=== PATIENT | female | born 1945 | race Caucasian/White ===

== ENCOUNTER 2019-07-18 11:08 | Emergency (ER) | payer MEDICARE, OTHER, SELFPAY ==
[2019-07-18 11:08] VITALS: BP 112/57; PULSE 99; RESP 18; TEMP 36.7; O2SAT 97; BMI 28.5
--- NOTE | 2019-07-18 11:35 | EKG12_ITS ---
Test Reason : SYNCOPE Blood Pressure : / mmHG Vent. Rate : 097 BPM Atrial Rate : 097 BPM P-R Int : 214 ms QRS Dur : 080 ms QT Int : 342 ms P-R-T Axes : 046 -29 156 degrees QTc Int : 434 ms Sinus rhythm with 1st degree A-V block ST & T wave abnormality, consider anterior ischemia Abnormal ECG Confirmed by HAKAN FRYE, CARTER ([id number]), art editor МАРИЯ ANTHONY ([id number]) on 07/22/2019 3:42:54 PM Referred By: ML Confirmed By:CARTER MCCLENDON MD
[2019-07-18 11:36] VITALS: BP 106/49; BP 108/56; BP 120/43; PULSE 104; PULSE 114; PULSE 99
--- NOTE | 2019-07-18 11:36 | ED.VIS.GEN ---
History of Present Illness Chief Complaint: Syncope Informant: Patient, Significant Other Narrative: Family presents the emergency department with syncope and near syncope. Patient states that this evening before bed she felt fine. This morning around 630 and walked to the bedside commode feeling fine. She states that while urinating she got very lightheaded and sweaty and fell forward onto the ground. She does not remember doing so. Her eventually was able to wake her up to get her back into the bed. She had vomiting. After about an hour and a half he helped her down the stairs when she laid on the couch. She attempted to get up and ambulate and again got very lightheaded/dizzy and hot and felt like she may pass out. They then decided to come to the emergency department. She is not had any prior syncope other than one time while donating blood. She states that the current time she feels fine she is just very hesitant about standing back up. EMS did note a blood pressure in the 70s when they arrived. That has subsequently normalized. Past Medical History - Allergies and Home Meds Allergies/Adverse Reactions: Allergies codeine Allergy (Verified 07/18/19 11:18) Other erythromycin lactobionate [From Erythrocin] Allergy (Verified 07/18/19 11:18) Other Primary Care Physician: Rick Dupont MD [Primary Care Provider] - 3-5 Days Smoking Status: Never smoker Review of Systems General: Denies: Chills, Fever, Sweats Eyes: Denies: Visual changes - bilaterally, Diplopia ENT: Denies: Rhinorrhea, Sore throat Cardiovascular: Reports: - - Syncope. Denies: Chest pain, Palpitations Respiratory: Denies: Dyspnea, Cough, Dyspnea on exertion Gastrointestinal: Reports: Nausea, Vomiting. Denies: Abdominal pain, Diarrhea, Melena, Hematochezia Genitourinary: Denies: Dysuria, Hematuria, Frequency Musculoskeletal: Denies: Back pain, Extremity Pain Skin: Denies: Rash, Wounds Neurological: Denies: Headache, Weakness, Numbness Physical Exam Vital Signs/Narrative: Vital Signs Temp Pulse Resp BP Pulse Ox 07/18/19 11:08 98.1 F 99 18 112/57 L 97 Inital Vital Signs reviewed: Yes General: Well nourished, Well developed, No Acute Distress Head: Normocephalic, Atraumatic Eyes: Perrl, EOMI ENT: Moist mucous membranes, No rhinorrhea Neck: Supple, Nontender Cardiovascular: Regular rate, Regular rhythm, No murmurs Respiratory: No distress, CTA bilaterally, Chest nontender Abdomen: Soft, Nontender, Nondistended, Normal bowel sounds Back: Nontender, Normal Inspection Extremities: Nontender, No edema Skin: Normal color, No rash Neurological: Alert, Oriented x3, Cranial nerves II-XII grossly intact, Normal Strength, Normal Sensation Psychological: Normal affect, Normal Mood Diagnostic/Tx/Re-eval - Medical Decision Making Basic labs including troponin were negative. Patient's EKG shows no ACS features. She is observed on the monitor and has had no dysrhythmias. Orthostatics were obtained and the patient feels fine standing. She has no chest pain or shortness of breath no risk factors for me to think that pulmonary embolism is a cause for her syncope. Given her descriptions of antipain on the commode getting hot sweaty and passing out that this is most likely vagal. Patient's been able to eat and drink and ambulate. She has not yet had her atenolol and she remained slightly tachycardic. Recommend that she take her atenolol when she gets home but hold her diuretic today. She will be discharged home with instructions to follow-up prescription for Zofran. ED Disposition - Plan for ED Patient: Disposition: Home or Assisted Living Diagnosis: Syncope and collapse Instructions: SYNCOPE, Vasovagal Prescriptions: Ondansetron [Zofran Odt] 4 mg PO Q6H PRN PRN #20 tab PRN Reason: Nausea Prescription Printed Referrals: Rick Dupont MD [Primary Care Provider] - 3-5 Days Additional Instructions: Please take your atenolol when you get home. I would recommend not taking your water pill (triamterene/hydrochlorothiazide) until you are eating and drinking normally.
[2019-07-18] MEDS: Ondansetron 4 MG/2 ML Vial IV (11:44)
[2019-07-18] MEDS: 0.9% Normal Saline 1,000 ML 1000 ML IV (11:44)
--- NOTE | 2019-07-18 11:52 | RAD_ITS ---
STUDY: X-RAY CHEST REASON FOR EXAM: Female, 73 years old. SYNCOPE TECHNIQUE: AP and lateral views of the chest. COMPARISON: None. FINDINGS: EKG electrode are seen. The lungs are clear and expanded. There is no demonstrated pleural abnormality. Normal size heart. Normal mediastinum and kaitlynn. Normal visualized pulmonary arteries. There is atherosclerotic tortuosity of the aortic arch and descending thoracic aorta. Normal visualized thoracic spine. Normal visualized ribs, clavicles, and shoulders. There is no demonstrated abnormality of the visualized soft tissue structures of the upper abdomen. RAD/Chest PA and Lateral IMPRESSION: No acute abnormality is seen. Electronically Signed: Kai Tarango, at 12:15 EST , Service support ,
[2019-07-18 11:56] LABS: Absolute Neutrophil Count 10.3 X10^3/uL (2.0-7.7); Basophil# 0.02 X10^3/uL; Basophil% 0.2 % (0-1); Eosinophil# 0.01 X10^3/uL; Eosinophils% 0.1 % (0-5); Hematocrit 42.5 % (37-47); Hemoglobin 13.9 g/dL (12.0-15.0); Lymphocyte % 4.4 % (19-41); Mean Corp Hgb Conc 32.7 g/dL (32-36); Mean Corpuscular Hgb 30.1 pg (27.0-32.0); Mean Platelet Vol. 10.3 fl (6.2-12.0); Monocyte# 0.38 X10^3/uL; Monocyte% 3.4 % (0-10); NRBC Flagged by Analyzer 0 % (0-5); Neutrophil # 10.28 X10^3/uL (2.7-7.7); Neutrophil % 91.4 % (47-70); POSITIVE DIFFERENTIAL YES; Platelet Count 243 K/mm3 (150-450); RBC Distribution Width CV 13.2 % (11.6-14.6); RBC Distribution Width SD 44.4 fl (35.1-43.9); Red Blood Count 4.62 M/mm3 (4.2-5.4); White Blood Count 11.3 K/mm3 (4.4-11.0)
[2019-07-18 11:57] LABS: Differential Indicated SCAN CRITERIA MET
[2019-07-18 12:08] VITALS: PULSE 16; O2SAT 96
[2019-07-18 12:18] LABS: ALB/GLOB Ratio 0.9 RATIO (0.9-2.4); AST(SGOT) 23 U/L (15-37); Alanine Aminotransfer ALT/SGPT 23 U/L (13-56); Albumin, Serum 3.4 g/dL (3.2-5.0); Alkaline Phosphatase 70 U/L (45-117); Anion Gap 5 (5-15); BUN 24 mg/dL (7-18); BUN/Creat Ratio 22.6 RATIO (10-20); Calcium,Total 8.7 mg/dL (8.5-10.1); Chloride 107 mmol/L (98-107); Creatinine, Serum 1.06 mg/dL (0.55-1.02); EST Glomerular Filtration Rate 54 mL/min (>60); Est Glom Filt Rate - Afr Amer 65 mL/min (>60); Estimated Creatinine Clearance 43.17 ml/min; Globulin 3.7 g/dL (2.2-4.2); Glucose 121 mg/dL (74-106); Protein, Total 7.1 g/dL (6.4-8.2); Sodium Level 141 mmol/L (136-145)
[2019-07-18 12:20] LABS: Differential Comment SCANNED
[2019-07-18 12:34] LABS: Red Blood Cells-Urine 0 SEEN /hpf (0-5)
[2019-07-18 12:45] LABS: Color, Urine Yellow (Yellow); Glucose, Dipstick Normal (Normal); Ketone-Dipstick Negative (Negative); Leukocyte Esterase-Dipstick 100 /ul (Negative); Nitrite-Dipstick Negative (Negative); Occult Blood-Urine 10 /ul (Negative); Protein-Dipstick 15 mg/dl (Negative); Urine Bilirubin Dipstick Negative (Negative); Urine Clarity Sl. Cloudy (Clear); Urine Urobilinogen Normal (Normal)
[2019-07-18 12:51] LABS: Amorphous Sediment 1+; Bacteria RARE /hpf (None Seen); Mucous, Urine RARE /hpf (<or=2+); Squamous Epithelial Cells - UA 0-5 SEEN /hpf (5-10); White Blood Cells 0-5 SEEN /hpf (0-5)
[2019-07-18 13:56] VITALS: BP 124/55; PULSE 100; RESP 16; TEMP 36.9; O2SAT 100
[2019-07-18 15:25] VITALS: BP 139/59; PULSE 105; RESP 16; O2SAT 98
== END 2019-07-18 15:26 | disposition home or self-care (01) ==
PROVIDERS: Emergency Provider Emergency Medicine; PCP Family Medicine
DX: R55 Syncope and collapse (principal); R11.10 Vomiting, unspecified; R42 Dizziness and giddiness; R00.0 Tachycardia, unspecified; Z79.82 Long term (current) use of aspirin; Z79.899 Other long term (current) drug therapy
CPT/HCPCS: 71046; 80053; 81001; 84484; 85025; 93005; 96361; 96374; 99285; A4216; J2405

== ENCOUNTER 2020-07-07 18:06 | Inpatient (IN) | payer MEDICARE, OTHER, SELFPAY ==
[2020-07-07 18:10] VITALS: BP 160/72; PULSE 67; RESP 20; TEMP 36.9; O2SAT 96; BMI 27.3
--- NOTE | 2020-07-07 18:22 | EKG12_ITS ---
Test Reason : DYSRHYTHMIA Blood Pressure : / mmHG Vent. Rate : 067 BPM Atrial Rate : 067 BPM P-R Int : 198 ms QRS Dur : 090 ms QT Int : 448 ms P-R-T Axes : 057 -28 028 degrees QTc Int : 473 ms Normal sinus rhythm Nonspecific T wave abnormality Abnormal ECG Confirmed by HAKAN FRYE, CARTER ([id number]), social media editor LAYNE OVIEDO ([id number]) on 07/08/2020 12:52:26 PM Referred By: ARPIT Confirmed By:CARTER MCCLENDON MD
--- NOTE | 2020-07-07 18:24 | ED.DCSUM_ITS ---
History of Present Illness Chief Complaint: Dizziness Informant: Patient Onset: Today Current Severity: Moderate Maximum Severity: Moderate Narrative: Patient present secondary to weakness and dizziness. Patient states on Monday she had a headache and cough. Yesterday she felt normal. Today she has felt lightheaded and dizzy. She denies fever. No vomiting or diarrhea. No alteration in smell or taste. Denies chest pain or palpitations. She denies urinary symptoms. - Past Medical History (1) Hypertension Status: Chronic (2) High cholesterol Status: Chronic (3) Hypothyroidism Status: Chronic Past Medical History - Allergies and Home Meds Allergies/Adverse Reactions: Allergies codeine Allergy (Verified 07/07/20 18:12) Other erythromycin lactobionate [From Erythrocin] Allergy (Verified 07/07/20 18:12) Other Primary Care Physician: Rick Dupont MD [Primary Care Provider] - Prior records reviewed: Yes Lives: Spouse/ Significant Other Smoking Status: Never smoker Review of Systems General: Denies: Chills, Fever Eyes: Denies: Visual changes - bilaterally ENT: Denies: Bilateral ear pain Cardiovascular: Denies: Chest pain, Palpitations Respiratory: Reports: Cough. Denies: Dyspnea Gastrointestinal: Denies: Abdominal pain, Nausea, Vomiting, Diarrhea Genitourinary: Denies: Dysuria Musculoskeletal: Denies: Swelling, Extremity Pain Skin: Denies: Rash Neurological: Denies: Headache Hematologic: Denies: Easy bruising, Easy bleeding Allergy: Denies: Uticaria Physical Exam Vital Signs/Narrative: Vital Signs Temp Pulse Resp BP Pulse Ox 07/07/20 18:10 98.5 F 67 20 H 160/72 H 96 Inital Vital Signs reviewed: Yes General: Well nourished, Well developed Head: Normocephalic ENT: Moist mucous membranes Neck: Supple Cardiovascular: Regular rate, Regular rhythm Respiratory: No distress, CTA bilaterally Abdomen: Soft, Nontender Extremities: Nontender Skin: Normal color Neurological: Alert, Oriented x3, Normal Strength, Normal Sensation Psychological: Normal affect Diagnostic/Tx/Re-eval Chest X-Ray - ED: 1 View, Read by ED Physician, Normal, Heart, Lungs, Mediastinum Impressions Chest X-Ray 07/07/20 18:55 IMPRESSION: Degenerative changes, as described above. No demonstrated acute cardiopulmonary process. Electronically Signed: Oli Hess MD at 19:20 EST , Service support , 07/07/20 18:55 Chest 1 View (Portable) [RAD] Stat 07/07/20 20:36 Mucosa - Nasopharyngeal Influenza Types A,B Direct FA (MAGDA) - Final 07/07/20 18:50 Mucosa - Nose SARS-CoV-2 Antigen (Rapid) - Final SARS-CoV-2 (COVID 19) Laboratory Results 07/07/20 07/07/20 07/07/20 18:11 18:11 19:35 WBC 7.3 RBC 4.96 Hgb 14.5 Hct 43.7 MCV 88.1 MCH 29.2 MCHC 33.2 RDW Std Deviation 41.3 RDW Coeff of Kevin 12.7 Plt Count 240 MPV 10.4 Immature Gran % (Auto) 0.300 Neut % (Auto) 46.0 L Lymph % (Auto) 40.9 [place] % (Auto) 10.8 H Eos % (Auto) 1.9 Baso % (Auto) 0.1 Absolute Neuts (auto) 3.4 Absolute Lymphs (auto) 3.00 Nucleated RBC % 0 Sodium 134 L Potassium 3.4 L Chloride 98 Carbon Dioxide 28.0 Anion Gap 8 BUN 14 Creatinine 1.02 Estim Creat Clear Calc 44.20 Est GFR (MDRD) Af Amer 68 Est GFR (MDRD) Non-Af 56 L BUN/Creatinine Ratio 13.7 Glucose 104 Calcium 9.5 Total Bilirubin 0.60 Direct Bilirubin 0.14 AST 15 ALT 24 Alkaline Phosphatase 82 Troponin I < 0.015 Total Protein 7.5 Albumin 3.8 Globulin 3.7 Urine Color Yellow Urine Clarity Clear Urine pH 7.0 Ur Specific [place] 1.010 Urine Protein Negative Urine Glucose (UA) Normal Urine Ketones Negative Urine Occult Blood 10 H Urine Nitrite Negative Urine Bilirubin Negative Urine Urobilinogen Normal Ur Leukocyte Esterase Negative Urine RBC 0 SEEN Urine WBC 0 SEEN Ur Squamous Epith Cells 0-5 SEEN Urine Bacteria 0 SEEN Urine Mucus 0 SEEN - EKG Initial EKG Interpretation: Sinus Rhythm - Sinus at 67 with no acute ischemia. Lateral T wave flattening. - Medical Decision Making Patient was given IV fluids here. Portable chest x-ray per my interpretation shows chronic changes. Radiologist interpretation is reviewed. Labs are reviewed with her potassium slightly low. Covid test was obtained. When I initially reviewed this I believe it said the test was negative. This was discussed with the patient and family. In light of this influenza test was ordered. When I went back to look of the influenza results the Covid test now says positive. Patient and are updated with this. She is in agreement with staying for remdesivir treatment. I will speak with the hospitalist. ED Disposition - Plan for ED Patient: Disposition: Acute Care Hospital [facility] Diagnosis: COVID-19 Referrals: Rick Dupont MD [Primary Care Provider] -
[2020-07-07 18:39] LABS: Absolute Neutrophil Count 3.4 X10^3/uL (2.0-7.7); Basophil# 0.01 X10^3/uL; Basophil% 0.1 % (0-1); Eosinophil# 0.14 X10^3/uL; Eosinophils% 1.9 % (0-5); Hematocrit 43.7 % (37-47); Hemoglobin 14.5 g/dL (12.0-15.0); Lymphocyte % 40.9 % (19-41); Mean Corp Hgb Conc 33.2 g/dL (32-36); Mean Corpuscular Hgb 29.2 pg (27.0-32.0); Mean Corpuscular Volume 88.1 fL (81-99); Mean Platelet Vol. 10.4 fl (6.2-12.0); Monocyte# 0.79 X10^3/uL; Monocyte% 10.8 % (0-10); NRBC Flagged by Analyzer 0 % (0-5); Neutrophil # 3.38 X10^3/uL (2.7-7.7); Platelet Count 240 K/mm3 (150-450); RBC Distribution Width CV 12.7 % (11.6-14.6); RBC Distribution Width SD 41.3 fl (35.1-43.9); Red Blood Count 4.96 M/mm3 (4.2-5.4); White Blood Count 7.3 K/mm3 (4.4-11.0)
[2020-07-07 18:55] LABS: AST(SGOT) 15 U/L (15-37); Alanine Aminotransfer ALT/SGPT 24 U/L (13-56); Albumin, Serum 3.8 g/dL (3.2-5.0); Alkaline Phosphatase 82 U/L (45-117); Anion Gap 8 (5-15); BUN 14 mg/dL (7-18); BUN/Creat Ratio 13.7 RATIO (10-20); Bilirubin, Direct 0.14 mg/dL (0.00-0.30); Calcium,Total 9.5 mg/dL (8.5-10.1); Chloride 98 mmol/L (98-107); Creatinine, Serum 1.02 mg/dL (0.55-1.02); EST Glomerular Filtration Rate 56 mL/min (>60); Est Glom Filt Rate - Afr Amer 68 mL/min (>60); Globulin 3.7 g/dL (2.2-4.2); Glucose 104 mg/dL (74-106); Potassium 3.4 mmol/L (3.5-5.1); Protein, Total 7.5 g/dL (6.4-8.2); Sodium Level 134 mmol/L (136-145)
--- NOTE | 2020-07-07 18:55 | RAD_ITS ---
STUDY: X-RAY CHEST REASON FOR EXAM: Female, 74 years old. Cough TECHNIQUE: Single AP portable view of the chest. COMPARISON: September 17, 2019. FINDINGS: The lungs are clear and expanded. There is no demonstrated pleural abnormality. Normal size heart. There are calcified mediastinal lymph nodes. Normal visualized pulmonary arteries. There is atherosclerotic calcification of the aortic arch with tortuosity. Normal visualized thoracic spine. Normal visualized ribs, clavicles, and shoulders. There is no demonstrated abnormality of the visualized soft tissue structures of the upper abdomen. RAD/Chest 1 View (Portable) IMPRESSION: Degenerative changes, as described above. No demonstrated acute cardiopulmonary process. Electronically Signed: Oli Hess MD at 19:20 EST , Service support ,
[2020-07-07] MEDS: 0.9% Normal Saline 1,000 ML 150 ML IV (19:02)
[2020-07-07 19:44] LABS: Bacteria 0 SEEN /hpf (None Seen); Color, Urine Yellow (Yellow); Glucose, Dipstick Normal (Normal); Ketone-Dipstick Negative (Negative); Leukocyte Esterase-Dipstick Negative /ul (Negative); Mucous, Urine 0 SEEN /hpf (<or=2+); Nitrite-Dipstick Negative (Negative); Occult Blood-Urine 10 /ul (Negative); Protein-Dipstick Negative (Negative); Red Blood Cells-Urine 0 SEEN /hpf (0-5); Urine Bilirubin Dipstick Negative (Negative); Urine Clarity Clear (Clear); Urine Urobilinogen Normal (Normal); White Blood Cells 0 SEEN /hpf (0-5)
[2020-07-07 20:05] LABS: Squamous Epithelial Cells - UA 0-5 SEEN /hpf (5-10)
[2020-07-07] MEDS: Potassium Chloride Oral Tablet 20 MEQ 40 MEQ PO (20:51)
[2020-07-07 20:52] VITALS: BP 148/67; PULSE 77; RESP 12; O2SAT 96
--- NOTE | 2020-07-07 22:40 | HP.PCM_ITS ---
Problem List (1) COVID-19 Status: Acute (2) Hypertension Status: Chronic Qualifiers: Hypertension type: essential hypertension Qualified Code(s): I10 - Essential (primary) hypertension (3) High cholesterol Status: Chronic (4) Hypothyroidism Status: Chronic Qualifiers: Hypothyroidism type: unspecified Qualified Code(s): E03.9 - Hypothyroidism, unspecified History of Present Illness Date of Admission: 07/07/20 Chief Complaint: Weakness, dizziness, headache, cough, lightheadedness. The patient is a 74 y/o F w/ PMHx: HTN, HLD, Hypothyroidism who presents to the [facility] ED on 07/07/20 with history of onset initially with frontal throbbing headache and dry cough starting the prior Monday with now onset lightheadedness and dizziness with significant debility associated with no recent fever, chills, nausea, emesis, abdominal pain, diarrhea, alteration sense of taste or smell however given not improving prompted ED presentation. In the emergency room with any activity attempts patient states she feels as though she may pass out. She also reports significant body aches and pain. Patient's reports upper respiratory tract type symptoms including significant cough, congestion, rhinorrhea with fatigue and malaise that started maybe 1 to 2 weeks prior but unclear timeline and not the best historian. They do have a son who lives in their house in the basement and noted that he has been asymptomatic. Work-up in the ED included T 98.5, heart rate 67, BP 160 or 72, respiratory rate 20, 96% room air, CBC with WC 7.3, hemoglobin 14.5, platelet 240 without marked shift, CMP with sodium 134, potassium 3.4 otherwise not marked appearing, troponin less than 0.015, UDS unremarkable, rapid influenza negative, rapid SARS Covid antigen testing positive, chest x-ray with no acute cardiopulmonary findings. In the ED patient ministered 40 mill equivalent p.o. potassium chloride x1 as well as normal saline. Past Medical History Past Medical History (Chronic Problems): Chronic Problems Hypertension (Chronic) High cholesterol (Chronic) Hypothyroidism (Chronic) Allergies codeine Allergy (Verified 07/07/20 18:12) Other erythromycin lactobionate [From Erythrocin] Allergy (Verified 07/07/20 18:12) Other Home Medications: Ambulatory Orders Medication Instructions Recorded Atenolol [Tenormin (beta Alyson)] 25 mg PO DAILY 09/01/15 Calcium Carbonate [Calcium] 600 mg PO DAILY 01/13/15 Cholecalciferol (VIT D3) [Vitamin 1,000 unit PO DAILY 01/13/15 D] Potassium 20 mg PO DAILY 01/13/15 Triamterene/Hydrochlorothiazid 1 tablet PO DAILY 01/13/15 [Triamterene-Hctz 37.5-25 mg Tb] Aspirin [Aspirin, Baby] 81 mg PO DAILY@0800 03/28/17 DiphenhydrAMINE [Benadryl] 50 mg PO QHS PRN PRN 03/28/17 Multivitamin [Daily Multiple 1 each PO DAILY 03/28/17 Vitamin] [place]-3 Fatty Acids [Fish Oil] 1,200 mg PO DAILY 03/28/17 Atorvastatin Calcium 10 mg PO QHS 07/18/19 Ondansetron [Zofran Odt] 4 mg PO Q6H PRN PRN #20 tab 07/18/19 Surgical History: no surgical history Psychiatric History: No pertinent psych hx COMMODITY DIRECTOR History: No pertinent COMMODITY DIRECTOR history Lives: Spouse/ Significant Other Smoking Status: Never smoker Tobacco Use: Non-smoker Alcohol: None Drugs: None - *Family History Maternal History Items: Cancer, Diabetes, Heart Disease Paternal History Items: Heart Disease, Stroke Review of Systems Constitutional: Reports: Anorexia, Malaise, Weakness, Fatigue. Denies: Chills, Fever, Weight Change HEENT: Reports: Head Aches, Nasal Congestion. Denies: Sinus Congestion, Sinus Drainage Cardiovascular: Denies: Chest Pain, Palpitations Respiratory: Reports: Cough. Denies: Shortness of Breath, Shortness of breath at rest, Shortness of breath upon exertion, Sputum production Gastrointestinal: Denies: Abdominal Pain, Nausea, Vomiting Genitourinary: Denies: Dysuria Musculoskeletal: Reports: Back Pain, Joint Pain, Muscle pain. Denies: Joint Tenderness Skin: Denies: Rash, Wounds Neurological: Denies: Numbness, Tingling, Focal weakness Psychiatric: Denies: Anxiety, Depression, Homicidal Ideations, Suicidal Ideations Hematologic/ Lymphatic: Denies: Easy Bruising, Easy Bleeding VTE Information - Inpt Only VTE Present on Admission: No VTE Mechan Device Prophylaxis: SCD's VTE Pharm Prophylaxis ordered?: Yes Patient Problems: Active and Suspected Problems COVID-19 (Acute) Subjective: Patient seated upright in the ED bed, fatigued and ill-appearing. Objective: Physical Examination: General: awake, alert, oriented x 3 and cooperative, seated upright in the ED bed, fatigued and ill-appearing. Skin: normal color, turgor, no icterus, cyanosis. HEENT: AT/NC, EOMI, PERRLA, mildly dry MM, no carotid bruits or JVD noted. Lungs: Diminished breath sounds, greater bases, appropriate effort, no rales, ronchi or wheezing. Heart: Regular rate and rhythm; no gallop, rub audible. Abdomen: soft, NTTP, ND, mildly hyperactive BS, no HSM. Extremities: no cyanosis, clubbing, or edema. Neurological: patient awake, alert, oriented as noted; cognitive function appears baseline intact; pupils equally reactive to light and accomodation; cranial nerves II-XII grossly normal, moving all 4 extremities, no focal deficits, strength severely global decreased secondary to patient complaints of lightheadedness and dizziness with any activity. Psychiatric: affect appears flat, fatigued, ill-appearing, no acute evidence of depressive or anxiety feelings. - Physical Exam Vitals/I&O's: Vital Signs Temp Pulse Resp BP Pulse Ox 98.5 F 77 12 148/67 H 96 07/07/20 18:10 07/07/20 20:52 07/07/20 20:52 07/07/20 20:52 07/07/20 20:52 Oxygen Delivery Method Room Air Weight: 164 lb 3.91 oz Body Mass Index (BMI) 27.3 Intake and Output for Last 24 Hours 07/05/20 07/06/20 07/07/20 23:59 23:59 23:59 Intake Total 1000 / 1000 Balance 1000 / 1000 Microbiology Past 72 Hours 07/07/20 20:36 Mucosa - Nasopharyngeal Influenza Types A,B Direct FA (MAGDA) - Final 07/07/20 18:50 Mucosa - Nose SARS-CoV-2 Antigen (Rapid) - Final SARS-CoV-2 (COVID 19) Laboratory Results 07/07/20 18:11: WBC 7.3, RBC 4.96, Hgb 14.5, Hct 43.7, MCV 88.1, MCH 29.2, MCHC 33.2, RDW Std Deviation 41.3, RDW Coeff of Kevin 12.7, Plt Count 240, MPV 10.4, Immature Gran % (Auto) 0.300, Neut % (Auto) 46.0 L, Lymph % (Auto) 40.9, [place] % (Auto) 10.8 H, Eos % (Auto) 1.9, Baso % (Auto) 0.1, Absolute Neuts (auto) 3.4, Absolute Lymphs (auto) 3.00, Nucleated RBC % 0 07/07/20 18:11: Sodium 134 L, Potassium 3.4 L, Chloride 98, Carbon Dioxide 28.0, Anion Gap 8, BUN 14, Creatinine 1.02, Estim Creat Clear Calc 44.20, Est GFR (MDR D) Af Amer 68, Est GFR (MDRD) Non-Af 56 L, BUN/Creatinine Ratio 13.7, Glucose 104, Calcium 9.5, Total Bilirubin 0.60, Direct Bilirubin 0.14, AST 15, ALT 24, Alkaline Phosphatase 82, Troponin I < 0.015, Total Protein 7.5, Albumin 3.8, Globulin 3.7 07/07/20 19:35: Urine Color Yellow, Urine Clarity Clear, Urine pH 7.0, Ur Specific [place] 1.010, Urine Protein Negative, Urine Glucose (UA) Normal, Urine Ketones Negative, Urine Occult Blood 10 H, Urine Nitrite Negative, Urine Bilirubin Negative, Urine Urobilinogen Normal, Ur Leukocyte Esterase Negative, Urine RBC 0 SEEN, Urine WBC 0 SEEN, Ur Squamous Epith Cells 0-5 SEEN, Urine Bacteria 0 SEEN, Urine Mucus 0 SEEN Current Medications Sodium Chloride () 1,000 mls @ 150 mls/hr IV .[id number] [facility] Last Infusion: 07/07/20 22:33 Dose: Infused Documented by: Assessment/Plan All Active Problems COVID-19 (Acute) The patient is a 74 y/o F w/ PMHx: HTN, HLD, Hypothyroidism who presents to the [facility] ED on 07/07/20 with history of onset initially with frontal throbbing headache and dry cough starting the prior Monday with now onset lightheadedness and dizziness with significant debility associated with no recent fever, chills, nausea, emesis, abdominal pain, diarrhea, alteration sense of taste or smell however given not improving prompted ED presentation. 1. Acute Dyspnea, Cough, Lightheadedness, Dizziness secondary to Acute Viral Syndrome, COVID-19: Will admit to the COVID unit, will maintain on oxygen with wean as tolerated to room air, PRN albuterol, HOB, IS parameters w/ pending sputum cultures, respiratory viral panel and urine antigens, will obtain D- dimer, procalcitonin, CRP, CPK, Ferritin, LDH, trop and BNP, continue supportive care including q 2 hour turning and judicious hydration, closely monitor for worsening status for ARDS and multiorgan failure, will consult Infectious dise ase, given patient not hypoxic and did not desaturate with ambulatory effort in the emergency room will defer initiation of Decadron, will await infectious disease evaluation for consideration for remdesivir given significant lightheadedness and dizziness but will defer initiation as not hypoxic. 2. Hypertension: Continue home regimen including atenolol, triamterene/hydrochlorothiazide with hold parameters as needed, PRN hydralazine. 3. Hyperlipidemia: Continue home statin regimen. 4. Questionable hypothyroidism: Current list with no evidence of Synthroid/levothyroxine regimen, will obtain TSH and free T4 levels, add regimen if clarified. 5. Hypokalemia: Admission K+ 3.4, magnesium level requested, supplementation given, repeat level in AM. 6. DVT prophylaxis: SCDs, Lovenox per Covid protocol. 7. CODE status: Discussed current presentation with Covid with patient and spouse who is present. Although patient clinically is stable discussed course of Covid and potential ability to worsen. Discussed CODE status at length including difference between FULL code, DNR-CCA and DNR-CC status. Following discussions about the differences in these status, requested Full Code status. Advanced Care Planning Face to Face Time: 16 minutes. OBSV E&M: [id number] Initial observation care L3 Procedures: [id number] Advncd Care Plan 30 Min
[2020-07-07 23:11] VITALS: BP 139/76; PULSE 71; RESP 17; TEMP 36.6; O2SAT 96
[2020-07-08] VITALS (7 sets, daily range): BP systolic 142–162; BP diastolic 63–82; PULSE 67–92; RESP 16–18; TEMP 36.4–36.9; O2SAT 95–98; BMI 26.7; BMI 26.8
[2020-07-08 00:45] LABS: D-Dimer Quantitative (DVT/PE) <= 0.27 FEU/ug/m (0.27-0.49)
[2020-07-08 00:56] LABS: BNP,B-Type NATRIURETIC PEPTIDE 73.8 pg/mL (0-100)
[2020-07-08] MEDS: 0.9% Normal Saline 1,000 ML 100 ML IV (01:08)
[2020-07-08 01:19] LABS: CRP < 2.90 mg/L (0.0-3.0); Ferritin 377 ng/mL (8-252); LDH 150 U/L (84-246); Magnesium 1.9 mg/dL (1.6-2.6)
[2020-07-08 01:22] LABS: Procalcitonin < 0.01 ng/mL (0.00-0.09)
[2020-07-08] MEDS: Ondansetron 4 MG/2 ML Vial IV (05:12)
[2020-07-08 05:13] LABS: Absolute Neutrophil Count 4.2 X10^3/uL (2.0-7.7); Basophil# 0.03 X10^3/uL; Basophil% 0.4 % (0-1); Eosinophil# 0.07 X10^3/uL; Eosinophils% 0.9 % (0-5); Hematocrit 47.1 % (37-47); Hemoglobin 15.1 g/dL (12.0-15.0); Lymphocyte % 34.4 % (19-41); Mean Corp Hgb Conc 32.1 g/dL (32-36); Mean Corpuscular Hgb 30.2 pg (27.0-32.0); Mean Corpuscular Volume 94.2 fL (81-99); Mean Platelet Vol. 10.1 fl (6.2-12.0); Monocyte# 0.68 X10^3/uL; NRBC Flagged by Analyzer 0 % (0-5); Neutrophil # 4.16 X10^3/uL (2.7-7.7); Platelet Count 215 K/mm3 (150-450); RBC Distribution Width SD 44.4 fl (35.1-43.9); White Blood Count 7.6 K/mm3 (4.4-11.0)
--- NOTE | 2020-07-08 05:56 | NURSING ---
called breakfast order for pt
[2020-07-08 06:51] LABS: AST(SGOT) 13 U/L (15-37); Alanine Aminotransfer ALT/SGPT 22 U/L (13-56); Albumin, Serum 3.2 g/dL (3.2-5.0); Alkaline Phosphatase 74 U/L (45-117); Anion Gap 6 (5-15); BUN 11 mg/dL (7-18); BUN/Creat Ratio 14.5 RATIO (10-20); Calcium,Total 8.2 mg/dL (8.5-10.1); Chloride 106 mmol/L (98-107); Creatinine, Serum 0.76 mg/dL (0.55-1.02); EST Glomerular Filtration Rate 79 mL/min (>60); Est Glom Filt Rate - Afr Amer 96 mL/min (>60); Estimated Creatinine Clearance 45.09 ml/min; Globulin 3.3 g/dL (2.2-4.2); Glucose 102 mg/dL (74-106); Potassium 3.6 mmol/L (3.5-5.1); Protein, Total 6.5 g/dL (6.4-8.2); Sodium Level 138 mmol/L (136-145); T4 Free Direct 1.29 ng/dL (0.76-1.46); Thyroid Stim Hormone (TSH) 2.35 uIU/mL (0.358-3.74)
[2020-07-08] MEDS: Enoxaparin 30 MG/0.3 ML Syringe SC ×2 (08:54→20:10)
[2020-07-08] MEDS: Atenolol 25 MG Tablet PO (08:54)
[2020-07-08] MEDS: Aspirin 81 MG TAB.CHEW PO (08:54)
[2020-07-08] MEDS: Triamterene 37.5MG/Hctz 25MG Capsule 1 CAP PO (08:54)
--- NOTE | 2020-07-08 10:17 | PN_ITS ---
Patient Problems: Active and Suspected Problems COVID-19 (Acute) Subjective: Patient seen and examined. He was admitted with a complaint of weakness and dizziness as well as cough and lightheadedness and was found to be Covid positive. She still complains of weakness today. She denies any shortness of breath, chest pain, palpitation, dizziness, nausea vomiting. Review of systems otherwise negative. She has remained hemodynamically stable. Vitals/I&O's: Vital Signs Temp Pulse Resp BP Pulse Ox 97.5 F L 92 16 158/82 H 97 07/08/20 08:59 07/08/20 08:59 07/08/20 08:59 07/08/20 08:59 07/08/20 08:59 Oxygen Delivery Method Room Air Weight: 160 lb 14.999 oz Body Mass Index (BMI) 26.7 Intake and Output for Last 24 Hours 07/06/20 07/07/20 07/08/20 23:59 23:59 23:59 Intake Total 1000 / 1000 60 / 60 Output Total 550 / 550 Balance 1000 / 1000 -490 / -490 General: Alert, Oriented x3, Cooperative, Lethargic HEENT: Atraumatic, PERRLA, EOMI, Normocephalic Oral: Dry Mucosa Neck: Supple, No JVD, Negative Carotid Bruits Lungs: Clear to auscultation, Normal air movement, No rhonchi, No wheeze, No rales Cardiovascular: Regular rate, Regular Rhythm, Normal S1, Normal S2, No murmurs Abdomen: Bowel Sounds Present, Soft, Non Tender, Non-Distended, No Hepato- splenomegaly Extremities: No clubbing, No cyanosis, No edema, Capillary Refill Less than 3 Seconds Skin: No rashes, No breakdown Musculoskeletal: No Tenderness to Palpation of Joints or Extremities Lymphatic: No Cervical, Supraclavicular, or Inguinal Adenopathy Neurological: Cranial nerves II-XII grossly intact, Neuro grossly intact, Motor Exam 5/5 strength throughout Psych/Mental Status: Normal Affect, Appropriate, Alert and oriented to time, place, person, mood and affect Microbiology Past 72 Hours 07/08/20 01:30 Interface Orders Respiratory Panel (PCR) - Final 07/07/20 18:11 Urine, Clean Catch Legionella Antigen - Final 07/07/20 18:11 Urine, Clean Catch Streptococcus pneumoniae Antigen (M - Final 07/07/20 20:36 Mucosa - Nasopharyngeal Influenza Types A,B Direct FA (MAGDA) - Final 07/07/20 18:50 Mucosa - Nose SARS-CoV-2 Antigen (Rapid) - Final SARS-CoV-2 (COVID 19) Laboratory Results 07/07/20 18:11: WBC 7.3, RBC 4.96, Hgb 14.5, Hct 43.7, MCV 88.1, MCH 29.2, MCHC 33.2, RDW Std Deviation 41.3, RDW Coeff of Kevin 12.7, Plt Count 240, MPV 10.4, Immature Gran % (Auto) 0.300, Neut % (Auto) 46.0 L, Lymph % (Auto) 40.9, [place] % (Auto) 10.8 H, Eos % (Auto) 1.9, Baso % (Auto) 0.1, Absolute Neuts (auto) 3.4, Absolute Lymphs (auto) 3.00, Nucleated RBC % 0 07/07/20 18:11: Sodium 134 L, Potassium 3.4 L, Chloride 98, Carbon Dioxide 28.0, Anion Gap 8, BUN 14, Creatinine 1.02, Estim Creat Clear Calc 44.20, Est GFR (MDRD) Af Amer 68, Est GFR (MDRD) Non-Af 56 L, BUN/Creatinine Ratio 13.7, Glucose 104, Calcium 9.5, Total Bilirubin 0.60, Direct Bilirubin 0.14, AST 15, ALT 24, Alkaline Phosphatase 82, Troponin I < 0.015, Total Protein 7.5, Albumin 3.8, Globulin 3.7 07/07/20 18:11: D-Dimer Quant (PE/DVT) <= 0.27 07/07/20 18:11: Magnesium 1.9, Ferritin 377 H, Lactate Dehydrogenase 150, C- React Prot Ext Range < 2.90 07/07/20 18:11: B-Natriuretic Peptide 73.8 07/07/20 19:35: Urine Color Yellow, Urine Clarity Clear, Urine pH 7.0, Ur Specific [place] 1.010, Urine Protein Negative, Urine Glucose (UA) Normal, Urine Ketones Negative, Urine Occult Blood 10 H, Urine Nitrite Negative, Urine Bilirubin Negative, Urine Urobilinogen Normal, Ur Leukocyte Esterase Negative, Urine RBC 0 SEEN, Urine WBC 0 SEEN, Ur Squamous Epith Cells 0-5 SEEN, Urine Bacteria 0 SEEN, Urine Mucus 0 SEEN 07/08/20 00:50: Procalcitonin < 0.01 07/08/20 05:00: WBC 7.6, RBC 5.00, Hgb 15.1 H, Hct 47.1 H, MCV 94.2 D, MCH 30.2, MCHC 32.1, RDW Std Deviation 44.4 H, RDW Coeff of Kevin 13.0, Plt Count 215, MPV 10.1, Immature Gran % (Auto) 0.300, Neut % (Auto) 55.0, Lymph % (Auto) 34.4, [place] % (Auto) 9.0, Eos % (Auto) 0.9, Baso % (Auto) 0.4, Absolute Neuts (auto) 4.2, Absolute Lymphs (auto) 2.60, Nucleated RBC % 0 07/08/20 05:00: Sodium Cancelled, Potassium Cancelled, Chloride Cancelled, Carbon Dioxide Cancelled, Anion Gap Cancelled, BUN Cancelled, Creatinine Cancelled, Estim Creat Clear Calc Cancelled, Est GFR (MDRD) Af Amer Cancelled, Est GFR (MDRD) Non-Af Cancelled, BUN/Creatinine Ratio Cancelled, Glucose Cancelled, Calcium Cancelled, Total Bilirubin Cancelled, AST Cancelled, ALT Cancelled, Alkaline Phosphatase Cancelled, Total Protein Cancelled, Albumin Cancelled, Globulin Cancelled, Albumin/Globulin Ratio Cancelled, TSH Cancelled, Free T4 Cancelled 07/08/20 06:18: Sodium 138, Potassium 3.6, Chloride 106, Carbon Dioxide 26.0, Anion Gap 6, BUN 11, Creatinine 0.76, Estim Creat Clear Calc 45.09, Est GFR (MDRD) Af Amer 96, Est GFR (MDRD) Non-Af 79, BUN/Creatinine Ratio 14.5, Glucose 102, Calcium 8.2 L, Total Bilirubin 0.60, AST 13 L, ALT 22, Alkaline Phosphatase 74, Total Protein 6.5, Albumin 3.2, Globulin 3.3, Albumin/Globulin Ratio 1.0, TSH 2.35, Free T4 1.29 Diagnostic Data Chest X-Ray 07/07/20 18:55 IMPRESSION: Degenerative changes, as described above. No demonstrated acute cardiopulmonary process. Electronically Signed: Oli Hess MD at 19:20 EST , Service support , Current Medications Acetaminophen (Acetaminophen 325 Mg Tablet) 650 mg PO Q6H PRN PRN PRN Reason: Pain Score 1-10/Temp > 100.7 F Al Hydroxide/Mg Hydroxide (Mag Hydrox/Al Hydrox/Simeth 30 Ml Udc) 30 ml PO Q6H PRN PRN PRN Reason: Gastric Burning Albuterol Sulfate (Albuterol Sulfate 18 Gm Inhaler (200 Puffs)) 4 - 8 puff IH Q4H PRN PRN PRN Reason: Dyspnea, wheezing Aspirin (Aspirin 81 Mg Tab.Chew) 81 mg PO DAILY [facility] Last Admin: 07/08/20 08:54 Dose: 81 mg Documented by: Atenolol (Atenolol 25 Mg Tablet) 25 mg PO DAILY [facility] Last Admin: 07/08/20 08:54 Dose: 25 mg Documented by: Atorvastatin Calcium (Atorvastatin Calcium 10 Mg Tablet) 10 mg PO QHS [facility] Enoxaparin Sodium (Enoxaparin 30 Mg/0.3 Ml Syringe) 30 mg SC BID [facility] Last Admin: 07/08/20 08:54 Dose: 30 mg Documented by: Guaifenesin (Guaifenesin 10 Ml Udc (200mg/10ml)) 20 ml PO Q4H PRN PRN PRN Reason: COUGH Hydralazine HCl (Hydralazine 20 Mg/Ml Vial) 10 mg IV Q4H PRN PRN PRN Reason: SBP > 160 Sodium Chloride () 250 mls @ 15 mls/hr IV .[id number] PRN PRN Reason: Saline Flush Sodium Chloride () 250 mls @ 15 mls/hr IV .[id number] PRN PRN Reason: Additional IVPB Infusion Magnesium Hydroxide (Magnesium Hydroxide 30 Ml Udc) 30 ml PO DAILY PRN PRN PRN Reason: Constipation Melatonin (Melatonin 3 Mg Tablet) 3 mg PO QHS PRN PRN PRN Reason: INSOMNIA Miscellaneous Information (Inhaler, Assist Devices 1 Each Spacer) 1 each INHALATION PRN PRN PRN Reason: WITH ALBUTEROL INHALER Ondansetron HCl (Ondansetron 4 Mg/2 Ml Vial) 4 mg IV Q8H PRN PRN PRN Reason: NAUSEA/VOMITING Last Admin: 07/08/20 05:12 Dose: 4 mg Documented by: Prochlorperazine Edisylate (Prochlorperazine 10 Mg/2 Ml Vial) 5 mg IV Q4H PRN PRN PRN Reason: Breakthrough nausea/vomiting Psyllium Hydrophilic Mucilloid (Psyllium 1 Packet) 1 packet PO DAILY PRN PRN PRN Reason: Constipation Senna/Docusate Sodium (Senna/Docusate Sodium 1 Tablet) 2 tablet PO BID PRN PRN PRN Reason: Constipation Sodium Chloride (0.9% Saline Lock 10 Ml Syringe) 10 - 40 ml IV UD PRN PRN Reason: SALINE FLUSH Throat Lozenges (Benzocaine/Menthol 1 Lozenge) 1 lozenge MUCOUS MEM Q2H PRN PRN PRN Reason: SORE THROAT Triamterene/Hydrochlorothiazide (Triamterene 37.5mg/Hctz 25mg Capsule) 1 cap PO DAILY [facility] Last Admin: 07/08/20 08:54 Dose: 1 cap Documented by: STROKE Vital Signs/Narrative: Vital Signs Temp Pulse Resp BP Pulse Ox 07/08/20 08:59 97.5 F L 92 16 158/82 H 97 07/08/20 08:32 96 Medical Necessity - Tobacco Use Smoking Status: Never smoker Tobacco Use: Non-smoker Assessment/Plan All Active Problems COVID-19 (Acute) #COVID 19 infection * remains lethargic * not on remdesivir as she wasnt hypoxic * ID consulted. await rec's * #Hypertension; on atenolol, triamterene/HCTZ and IV hydralazine prn #Hyperlipidemia: on statin. #Hypokalemia: resolved DVT prophylaxis: lovenox Inpatient E&M: 89312 Subs Hosp L2
--- NOTE | 2020-07-08 10:33 | CASEMGMT ---
RN CM Assessment Note Introduced role of CM to patient via phone. Pt is awake, alert and able to participate in assessment. Demographics, PCP verified. Patient states she is independent, no care needs. Her is asymptomatic @ home and has not tested positive. Pt states her son can bring groceries, etc to home during quarantine. She is able to isolate in the home. Presentation: weakness, dizziness, headache, cough Diagnosis: positive for Covid 19 COVID TESTING: [facility] 07/07/20 PCP: Dr. Domenic Dupont Insurance: [facility] Preferred Pharmacy: [facility] Prescription Benefit: yes LNOK: Living Arrangements: Lives independently. States no care needs. If needs arise, family can assist. Tranportation: drives DME: none. HHC: none Patient DC Goals: Home DC Plan: anticipate Home on discharge. PT/OT evaluations are ordered. CM available for discharge planning coordination. Contact CM for any concerns/needs that may arise. Bonny TAMAYO RN ACM
--- NOTE | 2020-07-08 13:18 | PCM.HP.ID ---
Problem List (1) COVID-19 Status: Acute Reason for Consult: zander Consulted by: Dr. Goldberg History of Present Illness: The patient is a 74 year old F with headache, dizziness, change in taste/smell, nausea, fatigue since 07/05. Came to ED, covid (+). Other member of her quaker recently with covid. at home feeling fine, going to get tested today. No aches, no fever or chills. Came to ED, not feeling any better today. Full ROS performed and neg except as noted above. - Medical History Past Medical History (Chronic Problems): Chronic Problems Hypertension (Chronic) High cholesterol (Chronic) Hypothyroidism (Chronic) Allergies/Adverse Reactions: Allergies codeine Allergy (Verified 07/07/20 18:12) Other erythromycin lactobionate [From Erythrocin] Allergy (Verified 07/07/20 18:12) Other Home Medications: Ambulatory Orders Medication Instructions Recorded Atenolol [Tenormin (beta Alyson)] 25 mg PO DAILY 01/13/15 Calcium Carbonate [Calcium] 600 mg PO DAILY 01/13/15 Cholecalciferol (VIT D3) [Vitamin 1,000 unit PO DAILY 01/13/15 D] Potassium 20 mg PO DAILY 01/13/15 Triamterene/Hydrochlorothiazid 1 tablet PO DAILY 01/13/15 [Triamterene-Hctz 37.5-25 mg Tb] Aspirin [Aspirin, Baby] 81 mg PO DAILY@0800 03/28/17 DiphenhydrAMINE [Benadryl] 50 mg PO QHS PRN PRN 03/28/17 Multivitamin [Daily Multiple 1 each PO DAILY 03/28/17 Vitamin] [place]-3 Fatty Acids [Fish Oil] 1,200 mg PO DAILY 03/28/17 Atorvastatin Calcium 10 mg PO QHS 07/18/19 Ondansetron [Zofran Odt] 4 mg PO Q6H PRN PRN #20 tab 07/18/19 - Social History Tobacco Use: non-smoker Vital Signs Temp Pulse Resp BP Pulse Ox 97.5 F L 92 16 158/82 H 97 07/08/20 08:59 07/08/20 08:59 07/08/20 08:59 07/08/20 08:59 07/08/20 08:59 Oxygen Delivery Method Room Air Weight: 73 kg Body Mass Index (BMI) 26.7 Microbiology Past 72 Hours 07/08/20 01:30 Respiratory Panel (PCR) - Final Interface Orders 07/07/20 18:11 Legionella Antigen - Final Urine, Clean Catch Streptococcus pneumoniae Antigen (M - Final 07/07/20 20:36 Influenza Types A,B Direct FA (MAGDA) - Final Mucosa - Nasopharyngeal 07/07/20 18:50 SARS-CoV-2 Antigen (Rapid) - Final Mucosa - Nose SARS-CoV-2 (COVID 19) Laboratory Tests Past 24 Hrs 07/07/20 07/07/20 07/07/20 18:11 18:11 18:11 WBC 7.3 RBC 4.96 Hgb 14.5 Hct 43.7 MCV 88.1 MCH 29.2 MCHC 33.2 RDW Std Deviation 41.3 RDW Coeff of Kevin 12.7 Plt Count 240 MPV 10.4 Immature Gran % (Auto) 0.300 Neut % (Auto) 46.0 L Lymph % (Auto) 40.9 [place] % (Auto) 10.8 H Eos % (Auto) 1.9 Baso % (Auto) 0.1 Absolute Neuts (auto) 3.4 Absolute Lymphs (auto) 3.00 Nucleated RBC % 0 D-Dimer Quant (PE/DVT) <= 0.27 Sodium 134 L Potassium 3.4 L Chloride 98 Carbon Dioxide 28.0 Anion Gap 8 BUN 14 Creatinine 1.02 Estim Creat Clear Calc 44.20 Est GFR (MDRD) Af Amer 68 Est GFR (MDRD) Non-Af 56 L BUN/Creatinine Ratio 13.7 Glucose 104 Calcium 9.5 Magnesium Ferritin Total Bilirubin 0.60 Direct Bilirubin 0.14 AST 15 ALT 24 Alkaline Phosphatase 82 Lactate Dehydrogenase Troponin I < 0.015 C-React Prot Ext Range B-Natriuretic Peptide Total Protein 7.5 Albumin 3.8 Globulin 3.7 Albumin/Globulin Ratio Procalcitonin TSH Free T4 Urine Color Urine Clarity Urine pH Ur Specific [place] Urine Protein Urine Glucose (UA) Urine Ketones Urine Occult Blood Urine Nitrite Urine Bilirubin Urine Urobilinogen Ur Leukocyte Esterase Urine RBC Urine WBC Ur Squamous Epith Cells Urine Bacteria Urine Mucus 07/07/20 07/07/20 07/07/20 18:11 18:11 19:35 WBC RBC Hgb Hct MCV MCH MCHC RDW Std Deviation RDW Coeff of Kevin Plt Count MPV Immature Gran % (Auto) Neut % (Auto) Lymph % (Auto) [place] % (Auto) Eos % (Auto) Baso % (Auto) Absolute Neuts (auto) Absolute Lymphs (auto) Nucleated RBC % D-Dimer Quant (PE/DVT) Sodium Potassium Chloride Carbon Dioxide Anion Gap BUN Creatinine Estim Creat Clear Calc Est GFR (MDRD) Af Amer Est GFR (MDRD) Non-Af BUN/Creatinine Ratio Glucose Calcium Magnesium 1.9 Ferritin 377 H Total Bilirubin Direct Bilirubin AST ALT Alkaline Phosphatase Lactate Dehydrogenase 150 Troponin I C-React Prot Ext Range < 2.90 B-Natriuretic Peptide 73.8 Total Protein Albumin Globulin Albumin/Globulin Ratio Procalcitonin TSH Free T4 Urine Color Yellow Urine Clarity Clear Urine pH 7.0 Ur Specific [place] 1.010 Urine Protein Negative Urine Glucose (UA) Normal Urine Ketones Negative Urine Occult Blood 10 H Urine Nitrite Negative Urine Bilirubin Negative Urine Urobilinogen Normal Ur Leukocyte Esterase Negative Urine RBC 0 SEEN Urine WBC 0 SEEN Ur Squamous Epith Cells 0-5 SEEN Urine Bacteria 0 SEEN Urine Mucus 0 SEEN 07/08/20 07/08/20 07/08/20 00:50 05:00 05:00 WBC 7.6 RBC 5.00 Hgb 15.1 H Hct 47.1 H MCV 94.2 D MCH 30.2 MCHC 32.1 RDW Std Deviation 44.4 H RDW Coeff of Kevin 13.0 Plt Count 215 MPV 10.1 Immature Gran % (Auto) 0.300 Neut % (Auto) 55.0 Lymph % (Auto) 34.4 [place] % (Auto) 9.0 Eos % (Auto) 0.9 Baso % (Auto) 0.4 Absolute Neuts (auto) 4.2 Absolute Lymphs (auto) 2.60 Nucleated RBC % 0 D-Dimer Quant (PE/DVT) Sodium Cancelled Potassium Cancelled Chloride Cancelled Carbon Dioxide Cancelled Anion Gap Cancelled BUN Cancelled Creatinine Cancelled Estim Creat Clear Calc Cancelled Est GFR (MDRD) Af Amer Cancelled Est GFR (MDRD) Non-Af Cancelled BUN/Creatinine Ratio Cancelled Glucose Cancelled Calcium Cancelled Magnesium Ferritin Total Bilirubin Cancelled Direct Bilirubin AST Cancelled ALT Cancelled Alkaline Phosphatase Cancelled Lactate Dehydrogenase Troponin I C-React Prot Ext Range B-Natriuretic Peptide Total Protein Cancelled Albumin Cancelled Globulin Cancelled Albumin/Globulin Ratio Cancelled Procalcitonin < 0.01 TSH Cancelled Free T4 Cancelled Urine Color Urine Clarity Urine pH Ur Specific [place] Urine Protein Urine Glucose (UA) Urine Ketones Urine Occult Blood Urine Nitrite Urine Bilirubin Urine Urobilinogen Ur Leukocyte Esterase Urine RBC Urine WBC Ur Squamous Epith Cells Urine Bacteria Urine Mucus 07/08/20 06:18 WBC RBC Hgb Hct MCV MCH MCHC RDW Std Deviation RDW Coeff of Kevin Plt Count MPV Immature Gran % (Auto) Neut % (Auto) Lymph % (Auto) [place] % (Auto) Eos % (Auto) Baso % (Auto) Absolute Neuts (auto) Absolute Lymphs (auto) Nucleated RBC % D-Dimer Quant (PE/DVT) Sodium 138 Potassium 3.6 Chloride 106 Carbon Dioxide 26.0 Anion Gap 6 BUN 11 Creatinine 0.76 Estim Creat Clear Calc 45.09 Est GFR (MDRD) Af Amer 96 Est GFR (MDRD) Non-Af 79 BUN/Creatinine Ratio 14.5 Glucose 102 Calcium 8.2 L Magnesium Ferritin Total Bilirubin 0.60 Direct Bilirubin AST 13 L ALT 22 Alkaline Phosphatase 74 Lactate Dehydrogenase Troponin I C-React Prot Ext Range B-Natriuretic Peptide Total Protein 6.5 Albumin 3.2 Globulin 3.3 Albumin/Globulin Ratio 1.0 Procalcitonin TSH 2.35 Free T4 1.29 Urine Color Urine Clarity Urine pH Ur Specific [place] Urine Protein Urine Glucose (UA) Urine Ketones Urine Occult Blood Urine Nitrite Urine Bilirubin Urine Urobilinogen Ur Leukocyte Esterase Urine RBC Urine WBC Ur Squamous Epith Cells Urine Bacteria Urine Mucus - Other Studies Radiology: [] reviewed Other Studies: [] Route of nutrition/ use of supplements: [] Nutritional Intake: [] IV Site: [] Alonso Catheter: [] - Physical Exam General: Alert, Oriented x3, Cooperative HEENT: Atraumatic, PERRLA, EOMI Neck: Supple, No Nodes Lungs: Clear to auscultation, Diminished Cardiovascular: Regular rate, Regular Rhythm Abdomen: Soft, Non Tender, Non-Distended Extremities: No edema Skin: No rashes IV Site: Peripheral, without redness Musculoskeletal: No Tenderness to Palpation of Joints or Extremities Neurological: Cranial nerves II-XII grossly intact - Assessment/Plan Antibiotics: [] Assessment/Plan: [] Active and Suspected Problems COVID-19 (Acute) covid 19 - sx started 07/05. is going to get tested. She was on waitlist for covid vaccine. Recommend vaccine be delayed for at least 2 weeks so she can recover from this infection. Given ongoing symptoms and sat as low as 95% on RA, will start remdesivir and hopefully she'll be able to go home tomorrow after her 2nd dose. Will follow, thank you
[2020-07-08] MEDS: MELATONIN 3 MG TABLET PO (20:10)
[2020-07-08] MEDS: Atorvastatin Calcium 10 MG Tablet PO (20:10)
[2020-07-09 04:00] VITALS: BP 144/68; PULSE 78; RESP 16; TEMP 36.4; O2SAT 98
[2020-07-09 05:01] LABS: Absolute Lymphocyte Count 2.73 X10^3/uL (0.83-4.51); Absolute Neutrophil Count 4.1 X10^3/uL (2.0-7.7); Basophil# 0.02 X10^3/uL; Basophil% 0.3 % (0-1); Eosinophil# 0.06 X10^3/uL; Eosinophils% 0.8 % (0-5); Hematocrit 42.6 % (37-47); Hemoglobin 14.1 g/dL (12.0-15.0); Lymphocyte # 2.73 X10^3/ul (4.0); Lymphocyte % 35.1 % (19-41); Mean Corp Hgb Conc 33.1 g/dL (32-36); Mean Corpuscular Hgb 30.1 pg (27.0-32.0); Mean Corpuscular Volume 90.8 fL (81-99); Mean Platelet Vol. 9.9 fl (6.2-12.0); Monocyte# 0.88 X10^3/uL; Monocyte% 11.3 % (0-10); NRBC Flagged by Analyzer 0 % (0-5); Neutrophil # 4.07 X10^3/uL (2.7-7.7); Neutrophil % 52.2 % (47-70); Platelet Count 216 K/mm3 (150-450); RBC Distribution Width CV 13.1 % (11.6-14.6); RBC Distribution Width SD 43.1 fl (35.1-43.9); Red Blood Count 4.69 M/mm3 (4.2-5.4); White Blood Count 7.8 K/mm3 (4.4-11.0)
[2020-07-09 05:26] LABS: ALB/GLOB Ratio 0.9 RATIO (0.9-2.4); AST(SGOT) 16 U/L (15-37); Alanine Aminotransfer ALT/SGPT 23 U/L (13-56); Albumin, Serum 3.2 g/dL (3.2-5.0); Alkaline Phosphatase 73 U/L (45-117); Anion Gap 5 (5-15); BUN 14 mg/dL (7-18); BUN/Creat Ratio 18.1 RATIO (10-20); Calcium,Total 8.6 mg/dL (8.5-10.1); Chloride 103 mmol/L (98-107); Creatinine, Serum 0.77 mg/dL (0.55-1.02); EST Glomerular Filtration Rate 78 mL/min (>60); Est Glom Filt Rate - Afr Amer 94 mL/min (>60); Estimated Creatinine Clearance 45.09 ml/min; Globulin 3.5 g/dL (2.2-4.2); Glucose 100 mg/dL (74-106); Potassium 3.1 mmol/L (3.5-5.1); Protein, Total 6.7 g/dL (6.4-8.2); Sodium Level 136 mmol/L (136-145)
[2020-07-09 07:39] VITALS: O2SAT 95
[2020-07-09 08:43] VITALS: BP 143/59; PULSE 69; RESP 18; TEMP 36.6; O2SAT 97
[2020-07-09] MEDS: Enoxaparin 30 MG/0.3 ML Syringe SC ×2 (08:51→22:13)
[2020-07-09] MEDS: Triamterene 37.5MG/Hctz 25MG Capsule 1 CAP PO (08:51)
[2020-07-09] MEDS: Aspirin 81 MG TAB.CHEW PO (08:51)
[2020-07-09] MEDS: Atenolol 25 MG Tablet PO (08:51)
--- NOTE | 2020-07-09 10:06 | PN_ITS ---
Patient Problems: Active and Suspected Problems COVID-19 (Acute) Subjective: Patient seen and examined. She has no complaints today. She had no active events overnight. Review of systems otherwise negative. ID reviewed patient and started her on remdesivir. She was remained hemodynamically stable. Potassium is 3.1 today. Vitals/I&O's: Vital Signs Temp Pulse Resp BP Pulse Ox 97.9 F 69 18 143/59 H 97 07/09/20 08:43 07/09/20 08:43 07/09/20 08:43 07/09/20 08:43 07/09/20 08:43 Oxygen Delivery Method Room Air Weight: 161 lb 13.109 oz Body Mass Index (BMI) 26.7 Intake and Output for Last 24 Hours 07/07/20 07/08/20 07/09/20 23:59 23:59 23:59 Intake Total 1000 / 1000 2029 / 2029 Output Total 2750 / 2750 Balance 1000 / 1000 -720 / -720 General: Alert, Oriented x3, Cooperative, HEENT: Atraumatic, PERRLA, EOMI, Normocephalic Oral: Dry Mucosa Neck: Supple, No JVD, Negative Carotid Bruits Lungs: Clear to auscultation, Normal air movement, No rhonchi, No wheeze, No rales Cardiovascular: Regular rate, Regular Rhythm, Normal S1, Normal S2, No murmurs Abdomen: Bowel Sounds Present, Soft, Non Tender, Non-Distended, No Hepato- splenomegaly Extremities: No clubbing, No cyanosis, No edema, Capillary Refill Less than 3 Seconds Skin: No rashes, No breakdown Musculoskeletal: No Tenderness to Palpation of Joints or Extremities Lymphatic: No Cervical, Supraclavicular, or Inguinal Adenopathy Neurological: Cranial nerves II-XII grossly intact, Neuro grossly intact, Motor Exam 5/5 strength throughout Psych/Mental Status: Flat affect, Appropriate, Alert and oriented to time, place, person, mood and affect Microbiology Past 72 Hours 07/08/20 01:30 Interface Orders Respiratory Panel (PCR) - Final 07/07/20 18:11 Urine, Clean Catch Legionella Antigen - Final 07/07/20 18:11 Urine, Clean Catch Streptococcus pneumoniae Antigen (M - Final 07/07/20 20:36 Mucosa - Nasopharyngeal Influenza Types A,B Direct FA (MAGDA) - Final 07/07/20 18:50 Mucosa - Nose SARS-CoV-2 Antigen (Rapid) - Final SARS-CoV-2 (COVID 19) Laboratory Results 07/09/20 04:55: Sodium 136, Potassium 3.1 L, Chloride 103, Carbon Dioxide 28.0, Anion Gap 5, BUN 14, Creatinine 0.77, Estim Creat Clear Calc 45.09, Est GFR (MDRD) Af Amer 94, Est GFR (MDRD) Non-Af 78, BUN/Creatinine Ratio 18.1, Glucose 100, Calcium 8.6, Total Bilirubin 0.50, AST 16, ALT 23, Alkaline Phosphatase 73, Total Protein 6.7, Albumin 3.2, Globulin 3.5, Albumin/Globulin Ratio 0.9 07/09/20 04:55: WBC 7.8, RBC 4.69, Hgb 14.1, Hct 42.6, MCV 90.8, MCH 30.1, MCHC 33.1, RDW Std Deviation 43.1, RDW Coeff of Kevin 13.1, Plt Count 216, MPV 9.9, Immature Gran % (Auto) 0.300, Neut % (Auto) 52.2, Lymph % (Auto) 35.1, [place] % (Auto) 11.3 H, Eos % (Auto) 0.8, Baso % (Auto) 0.3, Absolute Neuts (auto) 4.1, Absolute Lymphs (auto) 2.73, Nucleated RBC % 0 Diagnostic Data Chest X-Ray 07/07/20 18:55 IMPRESSION: Degenerative changes, as described above. No demonstrated acute cardiopulmonary process. Electronically Signed: Oli Hess MD at 19:20 EST , Service support , Current Medications Acetaminophen (Acetaminophen 325 Mg Tablet) 650 mg PO Q6H PRN PRN PRN Reason: Pain Score 1-10/Temp > 100.7 F Al Hydroxide/Mg Hydroxide (Mag Hydrox/Al Hydrox/Simeth 30 Ml Udc) 30 ml PO Q6H PRN PRN PRN Reason: Gastric Burning Albuterol Sulfate (Albuterol Sulfate 18 Gm Inhaler (200 Puffs)) 4 - 8 puff IH Q4H PRN PRN PRN Reason: Dyspnea, wheezing Aspirin (Aspirin 81 Mg Tab.Chew) 81 mg PO DAILY [facility] Last Admin: 07/09/20 08:51 Dose: 81 mg Documented by: Atenolol (Atenolol 25 Mg Tablet) 25 mg PO DAILY [facility] Last Admin: 07/09/20 08:51 Dose: 25 mg Documented by: Atorvastatin Calcium (Atorvastatin Calcium 10 Mg Tablet) 10 mg PO QHS [facility] Last Admin: 07/08/20 20:10 Dose: 10 mg Documented by: Enoxaparin Sodium (Enoxaparin 30 Mg/0.3 Ml Syringe) 30 mg SC BID [facility] Last Admin: 07/09/20 08:51 Dose: 30 mg Documented by: Guaifenesin (Guaifenesin 10 Ml Udc (200mg/10ml)) 20 ml PO Q4H PRN PRN PRN Reason: COUGH Hydralazine HCl (Hydralazine 20 Mg/Ml Vial) 10 mg IV Q4H PRN PRN PRN Reason: SBP > 160 Sodium Chloride () 250 mls @ 15 mls/hr IV .[id number] PRN PRN Reason: Saline Flush Sodium Chloride () 250 mls @ 15 mls/hr IV .[id number] PRN PRN Reason: Additional IVPB Infusion Remdesivir 100 mg/ Sodium (Chloride) 250 mls @ 125 mls/hr IV DAILY [facility]; Protocol Stop: 07/12/20 11:59 Potassium Chloride 40 meq/ (Sodium Chloride) 520 mls @ 130 mls/hr IV .Q4H [facility] Stop: 07/09/20 11:59 Last Admin: 07/09/20 08:45 Dose: 130 mls/hr Documented by: Magnesium Hydroxide (Magnesium Hydroxide 30 Ml Udc) 30 ml PO DAILY PRN PRN PRN Reason: Constipation Melatonin (Melatonin 3 Mg Tablet) 3 mg PO QHS PRN PRN PRN Reason: INSOMNIA Last Admin: 07/08/20 20:10 Dose: 3 mg Documented by: Miscellaneous Information (Inhaler, Assist Devices 1 Each Spacer) 1 each INHALATION PRN PRN PRN Reason: WITH ALBUTEROL INHALER Nutritional Formula (Lactose Free) (Ensure Enlive 120 Ml Liquid) 120 ml PO 4X/DAY [facility] Last Admin: 07/09/20 08:53 Dose: Not Given Documented by: Ondansetron HCl (Ondansetron 4 Mg/2 Ml Vial) 4 mg IV Q8H PRN PRN PRN Reason: NAUSEA/VOMITING Last Admin: 07/08/20 05:12 Dose: 4 mg Documented by: Prochlorperazine Edisylate (Prochlorperazine 10 Mg/2 Ml Vial) 5 mg IV Q4H PRN PRN PRN Reason: Breakthrough nausea/vomiting Psyllium Hydrophilic Mucilloid (Psyllium 1 Packet) 1 packet PO DAILY PRN PRN PRN Reason: Constipation Senna/Docusate Sodium (Senna/Docusate Sodium 1 Tablet) 2 tablet PO BID PRN PRN PRN Reason: Constipation Sodium Chloride (0.9% Saline Lock 10 Ml Syringe) 10 - 40 ml IV UD PRN PRN Reason: SALINE FLUSH Throat Lozenges (Benzocaine/Menthol 1 Lozenge) 1 lozenge MUCOUS MEM Q2H PRN PRN PRN Reason: SORE THROAT Triamterene/Hydrochlorothiazide (Triamterene 37.5mg/Hctz 25mg Capsule) 1 cap PO DAILY [facility] Last Admin: 07/09/20 08:51 Dose: 1 cap Documented by: STROKE Vital Signs/Narrative: Vital Signs Temp Pulse Resp BP Pulse Ox 07/09/20 08:43 97.9 F 69 18 143/59 H 97 07/09/20 07:39 95 Medical Necessity - Tobacco Use Smoking Status: Never smoker Tobacco Use: Non-smoker Assessment/Plan All Active Problems COVID-19 (Acute) #COVID 19 infection * seen by ID. started on remdesivir yesterday. * on room air * breathing treatment prn * #Hypokalemia: K is 3.1. Will replace and monitor. * #Hypertension; on atenolol, triamterene/HCTZ and IV hydralazine prn #Hyperlipidemia: on statin. DVT prophylaxis: lovenox Inpatient E&M: 24467 [facility] H[facility] L2
--- NOTE | 2020-07-09 10:19 | PN.ID_ITS ---
Patient Problems: Active and Suspected Problems COVID-19 (Acute) Subjective: Feeling a little better, headache is gone. is covid (+), not feeling well, called squad now. - Physical Exam Vitals/I&O's: Vital Signs Temp Pulse Resp BP Pulse Ox 97.9 F 69 18 143/59 H 97 07/09/20 08:43 07/09/20 08:43 07/09/20 08:43 07/09/20 08:43 07/09/20 08:43 Oxygen Delivery Method Room Air Weight: 73.4 kg Body Mass Index (BMI) 26.7 Intake and Output for Last 24 Hours 07/07/20 07/08/20 07/09/20 23:59 23:59 23:59 Intake Total 1000 / 1000 2029 Output Total 2750 / 2750 Balance 1000 / 1000 -720 / -720 General: Alert, Cooperative, No apparent distress Lungs: Clear to auscultation, Diminished Cardiovascular: Regular rate, Regular Rhythm Abdomen: Soft, Non Tender, Non-Distended Skin: No rashes Microbiology Past 72 Hours 07/08/20 01:30 Interface Orders Respiratory Panel (PCR) - Final 07/07/20 18:11 Urine, Clean Catch Legionella Antigen - Final 07/07/20 18:11 Urine, Clean Catch Streptococcus pneumoniae Antigen (M - Final 07/07/20 20:36 Mucosa - Nasopharyngeal Influenza Types A,B Direct FA (MAGDA) - Final 07/07/20 18:50 Mucosa - Nose SARS-CoV-2 Antigen (Rapid) - Final SARS-CoV-2 (COVID 19) Laboratory Results 07/09/20 04:55: Sodium 136, Potassium 3.1 L, Chloride 103, Carbon Dioxide 28.0, Anion Gap 5, BUN 14, Creatinine 0.77, Estim Creat Clear Calc 45.09, Est GFR (MDRD) Af Amer 94, Est GFR (MDRD) Non-Af 78, BUN/Creatinine Ratio 18.1, Glucose 100, Calcium 8.6, Total Bilirubin 0.50, AST 16, ALT 23, Alkaline Phosphatase 73, Total Protein 6.7, Albumin 3.2, Globulin 3.5, Albumin/Globulin Ratio 0.9 07/09/20 04:55: WBC 7.8, RBC 4.69, Hgb 14.1, Hct 42.6, MCV 90.8, MCH 30.1, MCHC 33.1, RDW Std Deviation 43.1, RDW Coeff of Kevin 13.1, Plt Count 216, MPV 9.9, Immature Gran % (Auto) 0.300, Neut % (Auto) 52.2, Lymph % (Auto) 35.1, [place] % (Auto) 11.3 H, Eos % (Auto) 0.8, Baso % (Auto) 0.3, Absolute Neuts (auto) 4.1, Absolute Lymphs (auto) 2.73, Nucleated RBC % 0 Current Medications Acetaminophen (Acetaminophen 325 Mg Tablet) 650 mg PO Q6H PRN PRN PRN Reason: Pain Score 1-10/Temp > 100.7 F Al Hydroxide/Mg Hydroxide (Mag Hydrox/Al Hydrox/Simeth 30 Ml Udc) 30 ml PO Q6H PRN PRN PRN Reason: Gastric Burning Albuterol Sulfate (Albuterol Sulfate 18 Gm Inhaler (200 Puffs)) 4 - 8 puff IH Q4H PRN PRN PRN Reason: Dyspnea, wheezing Aspirin (Aspirin 81 Mg Tab.Chew) 81 mg PO DAILY [facility] Last Admin: 07/09/20 08:51 Dose: 81 mg Documented by: Atenolol (Atenolol 25 Mg Tablet) 25 mg PO DAILY [facility] Last Admin: 07/09/20 08:51 Dose: 25 mg Documented by: Atorvastatin Calcium (Atorvastatin Calcium 10 Mg Tablet) 10 mg PO QHS [facility] Last Admin: 07/08/20 20:10 Dose: 10 mg Documented by: Enoxaparin Sodium (Enoxaparin 30 Mg/0.3 Ml Syringe) 30 mg SC BID [facility] Last Admin: 07/09/20 08:51 Dose: 30 mg Documented by: Guaifenesin (Guaifenesin 10 Ml Udc (200mg/10ml)) 20 ml PO Q4H PRN PRN PRN Reason: COUGH Hydralazine HCl (Hydralazine 20 Mg/Ml Vial) 10 mg IV Q4H PRN PRN PRN Reason: SBP > 160 Sodium Chloride () 250 mls @ 15 mls/hr IV .[id number] PRN PRN Reason: Saline Flush Sodium Chloride () 250 mls @ 15 mls/hr IV .[id number] PRN PRN Reason: Additional IVPB Infusion Remdesivir 100 mg/ Sodium (Chloride) 250 mls @ 125 mls/hr IV DAILY [facility]; Protocol Stop: 07/12/20 11:59 Potassium Chloride 40 meq/ (Sodium Chloride) 520 mls @ 130 mls/hr IV .Q4H [facility] Stop: 07/09/20 11:59 Last Admin: 07/09/20 08:45 Dose: 130 mls/hr Documented by: Magnesium Hydroxide (Magnesium Hydroxide 30 Ml Udc) 30 ml PO DAILY PRN PRN PRN Reason: Constipation Melatonin (Melatonin 3 Mg Tablet) 3 mg PO QHS PRN PRN PRN Reason: INSOMNIA Last Admin: 07/08/20 20:10 Dose: 3 mg Documented by: Miscellaneous Information (Inhaler, Assist Devices 1 Each Spacer) 1 each INHALATION PRN PRN PRN Reason: WITH ALBUTEROL INHALER Nutritional Formula (Lactose Free) (Ensure Enlive 120 Ml Liquid) 120 ml PO 4X/DAY [facility] Last Admin: 07/09/20 08:53 Dose: Not Given Documented by: Ondansetron HCl (Ondansetron 4 Mg/2 Ml Vial) 4 mg IV Q8H PRN PRN PRN Reason: NAUSEA/VOMITING Last Admin: 07/08/20 05:12 Dose: 4 mg Documented by: Prochlorperazine Edisylate (Prochlorperazine 10 Mg/2 Ml Vial) 5 mg IV Q4H PRN PRN PRN Reason: Breakthrough nausea/vomiting Psyllium Hydrophilic Mucilloid (Psyllium 1 Packet) 1 packet PO DAILY PRN PRN PRN Reason: Constipation Senna/Docusate Sodium (Senna/Docusate Sodium 1 Tablet) 2 tablet PO BID PRN PRN PRN Reason: Constipation Sodium Chloride (0.9% Saline Lock 10 Ml Syringe) 10 - 40 ml IV UD PRN PRN Reason: SALINE FLUSH Throat Lozenges (Benzocaine/Menthol 1 Lozenge) 1 lozenge MUCOUS MEM Q2H PRN PRN PRN Reason: SORE THROAT Triamterene/Hydrochlorothiazide (Triamterene 37.5mg/Hctz 25mg Capsule) 1 cap PO DAILY [facility] Last Admin: 07/09/20 08:51 Dose: 1 cap Documented by: Medical Necessity - Tobacco Use Smoking Status: Never smoker Tobacco Use: Non-smoker Route of nutrition/ use of supplements: [] Nutritional Intake: [] IV Site: [] Alonso Catheter: [] - Assessment/Plan Antibiotics: [] Assessment/Plan: [] Active and Suspected Problems COVID-19 (Acute) covid 19 - sx started 07/05. is now (+) and ill, coming to ED. She was on waitlist for covid vaccine. Recommend vaccine be delayed for at least 2 weeks so she can recover from this infection. On remdesivir, feeling a little better and hopefully she'll be able to go home today or tomorrow. Quarantine for 10 days total given lack of hypoxia. Will follow
[2020-07-09] MEDS: Ondansetron 4 MG/2 ML Vial IV ×2 (12:19→20:11)
--- NOTE | 2020-07-09 12:19 | NURSING ---
PT C/O NAUSEA AND MY FOREHEAD FEELS HOT. ZOFRAN GIVEN FOR NAUSEA. PT NOTED TO NOT BE TAKING FLUIDS IN, WATER ENCOURAGED, OTHER DRINKS OFFERED. PT REFUSED OTHER DRINKS AND STATES SHE WILL TRY TO DRINK WATER. TEMP=98.0, ORALLY. PT ENCOURAGED TO DEMONSTRATE I.S. USE. EMOTIONAL SUPPORT PROVIDED. WILL CONT TO MONITOR.
[2020-07-09 14:01] VITALS: BP 128/59; PULSE 66; RESP 16; TEMP 36.5; O2SAT 100
[2020-07-09 16:30] VITALS: BP 138/39; PULSE 70; RESP 18; TEMP 36.6; O2SAT 99
[2020-07-09] MEDS: 0.9% Saline Lock 10 ML Syringe IV (20:11)
[2020-07-09] MEDS: Atorvastatin Calcium 10 MG Tablet PO (22:12)
[2020-07-09] MEDS: MELATONIN 3 MG TABLET PO (22:13)
[2020-07-09 22:20] VITALS: BP 151/57; PULSE 71; RESP 18; TEMP 36; O2SAT 97
[2020-07-10 04:15] VITALS: BP 146/71; PULSE 73; RESP 18; TEMP 36.3; O2SAT 97
--- NOTE | 2020-07-10 09:01 | CASEMGMT ---
Social Work SW placed call to pt room and introduced self and role of SW. Pt reports her spouse came to ED yesterday and was transferred to [facility]. Pt was able to speak to this morning and is understanding of his diagnosis. Pt states she has two sons who will be in charge of caring for and pt does not appear to be negatively affected by his hospitalization. Pt denying feelings of anxiety or depression at this time. Pt aware SW will remain available should needs arise. ABEL Brown
[2020-07-10] MEDS: Enoxaparin 30 MG/0.3 ML Syringe SC ×2 (09:18→23:03)
[2020-07-10] MEDS: Triamterene 37.5MG/Hctz 25MG Capsule 1 CAP PO (09:18)
[2020-07-10] MEDS: Atenolol 25 MG Tablet PO (09:18)
[2020-07-10] MEDS: Aspirin 81 MG TAB.CHEW PO (09:18)
[2020-07-10 10:15] VITALS: BP 145/56; PULSE 66; RESP 16; TEMP 36.1; O2SAT 97
--- NOTE | 2020-07-10 10:24 | PCM.PN.HOSP ---
Patient Problems: Active and Suspected Problems COVID-19 (Acute) Subjective: Patient seen and examined She complains of some abdominal cramping today. Review of systems otherwise negative. Has remained hemodynamically stable. She is on remdesivir. Vitals/I&O's: Vital Signs Temp Pulse Resp BP Pulse Ox 97.4 F L 73 18 146/71 H 97 07/10/20 04:15 07/10/20 04:15 07/10/20 04:15 07/10/20 04:15 07/10/20 04:15 Oxygen Delivery Method Room Air Weight: 157 lb 6.561 oz Body Mass Index (BMI) 26.7 Intake and Output for Last 24 Hours 07/08/20 07/09/20 07/10/20 23:59 23:59 23:59 Intake Total 2029 / 2029 970 / 970 Output Total 2750 / 2750 550 / 950 800 / 800 Balance -720 / -720 420 / 20 -800 / -800 General: Alert, Oriented x3, Cooperative, HEENT: Atraumatic, PERRLA, EOMI, Normocephalic Oral: Dry Mucosa Neck: Supple, No JVD, Negative Carotid Bruits Lungs: Clear to auscultation, Normal air movement, No rhonchi, No wheeze, No rales Cardiovascular: Regular rate, Regular Rhythm, Normal S1, Normal S2, No murmurs Abdomen: Bowel Sounds Present, Soft, Non Tender, Non-Distended, No Hepato-splenomegaly Extremities: No clubbing, No cyanosis, No edema, Capillary Refill Less than 3 Seconds Skin: No rashes, No breakdown Musculoskeletal: No Tenderness to Palpation of Joints or Extremities Lymphatic: No Cervical, Supraclavicular, or Inguinal Adenopathy Neurological: Cranial nerves II-XII grossly intact, Neuro grossly intact, Motor Exam 5/5 strength throughout Psych/Mental Status: Flat affect, Appropriate, Alert and oriented to time, place, person, mood and affect Microbiology Past 72 Hours 07/08/20 01:30 Interface Orders Respiratory Panel (PCR) - Final 07/07/20 18:11 Urine, Clean Catch Legionella Antigen - Final 07/07/20 18:11 Urine, Clean Catch Streptococcus pneumoniae Antigen (M - Final 07/07/20 20:36 Mucosa - Nasopharyngeal Influenza Types A,B Direct FA (MAGDA) - Final 07/07/20 18:50 Mucosa - Nose SARS-CoV-2 Antigen (Rapid) - Final SARS-CoV-2 (COVID 19) Laboratory Results 07/10/20 07:50: Sodium 141, Potassium 3.2 L, Chloride 106, Carbon Dioxide 28.0, Anion Gap 7, BUN 27 H, Creatinine 1.01, Estim Creat Clear Calc 44.64, Est GFR (MDRD) Af Amer 69, Est GFR (MDRD) Non-Af 57 L, BUN/Creatinine Ratio 26.7 H, Glucose 103, Calcium 9.2 Diagnostic Data Chest X-Ray 07/07/20 18:55 IMPRESSION: Degenerative changes, as described above. No demonstrated acute cardiopulmonary process. Electronically Signed: Oli Hess MD at 19:20 EST , Service support , Current Medications Acetaminophen (Acetaminophen 325 Mg Tablet) 650 mg PO Q6H PRN PRN PRN Reason: Pain Score 1-10/Temp > 100.7 F Al Hydroxide/Mg Hydroxide (Mag Hydrox/Al Hydrox/Simeth 30 Ml Udc) 30 ml PO Q6H PRN PRN PRN Reason: Gastric Burning Albuterol Sulfate (Albuterol Sulfate 18 Gm Inhaler (200 Puffs)) 4 - 8 puff IH Q4H PRN PRN PRN Reason: Dyspnea, wheezing Aspirin (Aspirin 81 Mg Tab.Chew) 81 mg PO DAILY [facility] Last Admin: 07/10/20 09:18 Dose: 81 mg Documented by: Atenolol (Atenolol 25 Mg Tablet) 25 mg PO DAILY [facility] Last Admin: 07/10/20 09:18 Dose: 25 mg Documented by: Atorvastatin Calcium (Atorvastatin Calcium 10 Mg Tablet) 10 mg PO QHS [facility] Last Admin: 07/09/20 22:12 Dose: 10 mg Documented by: Enoxaparin Sodium (Enoxaparin 30 Mg/0.3 Ml Syringe) 30 mg SC BID [facility] Last Admin: 07/10/20 09:18 Dose: 30 mg Documented by: Guaifenesin (Guaifenesin 10 Ml Udc (200mg/10ml)) 20 ml PO Q4H PRN PRN PRN Reason: COUGH Hydralazine HCl (Hydralazine 20 Mg/Ml Vial) 10 mg IV Q4H PRN PRN PRN Reason: SBP > 160 Sodium Chloride () 250 mls @ 15 mls/hr IV .[id number] PRN PRN Reason: Saline Flush Sodium Chloride () 250 mls @ 15 mls/hr IV .[id number] PRN PRN Reason: Additional IVPB Infusion Remdesivir 100 mg/ Sodium (Chloride) 250 mls @ 125 mls/hr IV DAILY [facility]; Protocol Stop: 07/12/20 11:59 Last Infusion: 07/09/20 16:40 Dose: Infused Documented by: Magnesium Hydroxide (Magnesium Hydroxide 30 Ml Udc) 30 ml PO DAILY PRN PRN PRN Reason: Constipation Melatonin (Melatonin 3 Mg Tablet) 3 mg PO QHS PRN PRN PRN Reason: INSOMNIA Last Admin: 07/09/20 22:13 Dose: 3 mg Documented by: Miscellaneous Information (Inhaler, Assist Devices 1 Each Spacer) 1 each INHALATION PRN PRN PRN Reason: WITH ALBUTEROL INHALER Nutritional Formula (Lactose Free) (Ensure Enlive 120 Ml Liquid) 120 ml PO 4X/DAY [facility] Last Admin: 07/09/20 22:12 Dose: 120 ml Documented by: Ondansetron HCl (Ondansetron 4 Mg/2 Ml Vial) 4 mg IV Q8H PRN PRN PRN Reason: NAUSEA/VOMITING Last Admin: 07/09/20 20:11 Dose: 4 mg Documented by: Prochlorperazine Edisylate (Prochlorperazine 10 Mg/2 Ml Vial) 5 mg IV Q4H PRN PRN PRN Reason: Breakthrough nausea/vomiting Psyllium Hydrophilic Mucilloid (Psyllium 1 Packet) 1 packet PO DAILY PRN PRN PRN Reason: Constipation Senna/Docusate Sodium (Senna/Docusate Sodium 1 Tablet) 2 tablet PO BID PRN PRN PRN Reason: Constipation Sodium Chloride (0.9% Saline Lock 10 Ml Syringe) 10 - 40 ml IV UD PRN PRN Reason: SALINE FLUSH Last Admin: 07/09/20 20:11 Dose: 10 ml Documented by: Throat Lozenges (Benzocaine/Menthol 1 Lozenge) 1 lozenge MUCOUS MEM Q2H PRN PRN PRN Reason: SORE THROAT Triamterene/Hydrochlorothiazide (Triamterene 37.5mg/Hctz 25mg Capsule) 1 cap PO DAILY [facility] Last Admin: 07/10/20 09:18 Dose: 1 cap Documented by: Medical Necessity - Tobacco Use Smoking Status: Never smoker Tobacco Use: Non-smoker Assessment/Plan All Active Problems COVID-19 (Acute) #COVID 19 infection seen by ID. on remdesivir. to complete course of remdesivir on room air breathing treatment prn #Hypokalemia: K is 3.2. likely exacerbated by her being on diuretics. Will replace and monitor. #Hypertension; on atenolol, triamterene/HCTZ and IV hydralazine prn #Hyperlipidemia: on statin. DVT prophylaxis: lovenox Inpatient E&M: 90935 Subs Hosp L2
[2020-07-10 15:24] LABS: Anion Gap 7 (5-15); BUN 17 mg/dL (7-18); Calcium,Total 9.1 mg/dL (8.5-10.1); Chloride 98 mmol/L (98-107); EST Glomerular Filtration Rate 66 mL/min (>60); Est Glom Filt Rate - Afr Amer 79 mL/min (>60); Estimated Creatinine Clearance 50.09 ml/min; Glucose 110 mg/dL (74-106); Potassium 3.4 mmol/L (3.5-5.1); Sodium Level 133 mmol/L (136-145)
[2020-07-10 17:37] VITALS: BP 151/56; PULSE 68; RESP 18; TEMP 36.7; O2SAT 97
[2020-07-10 20:00] VITALS: PULSE 70; RESP 16; O2SAT 98
[2020-07-10 20:42] VITALS: BP 151/72; PULSE 70; RESP 16; TEMP 36.3; O2SAT 98
[2020-07-10] MEDS: MELATONIN 3 MG TABLET PO (23:03)
[2020-07-10] MEDS: Atorvastatin Calcium 10 MG Tablet PO (23:03)
[2020-07-10] MEDS: Ondansetron 4 MG/2 ML Vial IV (23:11)
[2020-07-11 03:40] VITALS: BP 135/61; PULSE 69; RESP 16; TEMP 36.6; O2SAT 96
[2020-07-11 07:01] LABS: Absolute Lymphocyte Count 2.75 X10^3/uL (0.83-4.51); Absolute Neutrophil Count 5.2 X10^3/uL (2.0-7.7); Basophil# 0.02 X10^3/uL; Basophil% 0.2 % (0-1); Eosinophil# 0.04 X10^3/uL; Eosinophils% 0.5 % (0-5); Hematocrit 44.3 % (37-47); Lymphocyte # 2.75 X10^3/ul (4.0); Mean Corp Hgb Conc 33.9 g/dL (32-36); Mean Corpuscular Hgb 29.8 pg (27.0-32.0); Mean Corpuscular Volume 88.1 fL (81-99); Mean Platelet Vol. 9.9 fl (6.2-12.0); Monocyte# 0.85 X10^3/uL; Monocyte% 9.6 % (0-10); NRBC Flagged by Analyzer 0 % (0-5); Neutrophil # 5.19 X10^3/uL (2.7-7.7); Neutrophil % 58.4 % (47-70); Platelet Count 259 K/mm3 (150-450); RBC Distribution Width CV 12.6 % (11.6-14.6); RBC Distribution Width SD 40.9 fl (35.1-43.9); Red Blood Count 5.03 M/mm3 (4.2-5.4); White Blood Count 8.9 K/mm3 (4.4-11.0)
[2020-07-11 07:20] VITALS: O2SAT 96
[2020-07-11 07:31] LABS: ALB/GLOB Ratio 0.9 RATIO (0.9-2.4); AST(SGOT) 33 U/L (15-37); Alanine Aminotransfer ALT/SGPT 36 U/L (13-56); Albumin, Serum 3.4 g/dL (3.2-5.0); Alkaline Phosphatase 76 U/L (45-117); Anion Gap 8 (5-15); BUN 17 mg/dL (7-18); BUN/Creat Ratio 18.8 RATIO (10-20); Calcium,Total 9.3 mg/dL (8.5-10.1); Chloride 96 mmol/L (98-107); EST Glomerular Filtration Rate 65 mL/min (>60); Est Glom Filt Rate - Afr Amer 78 mL/min (>60); Estimated Creatinine Clearance 50.09 ml/min; Globulin 3.6 g/dL (2.2-4.2); Glucose 107 mg/dL (74-106); Potassium 3.4 mmol/L (3.5-5.1); Sodium Level 133 mmol/L (136-145)
[2020-07-11] MEDS: Enoxaparin 30 MG/0.3 ML Syringe SC (09:44)
[2020-07-11] MEDS: Atenolol 25 MG Tablet PO (09:45)
[2020-07-11] MEDS: Aspirin 81 MG TAB.CHEW PO (09:45)
[2020-07-11] MEDS: Triamterene 37.5MG/Hctz 25MG Capsule 1 CAP PO (09:45)
[2020-07-11 09:49] VITALS: BP 144/68; PULSE 86; RESP 16; TEMP 36.6; O2SAT 98
--- NOTE | 2020-07-11 10:20 | PCM.DC ---
- Discharge Diagnoses Current Active Problems: Current Active and Chronic Problems Hypertension (Chronic) High cholesterol (Chronic) Hypothyroidism (Chronic) COVID-19 (Acute) You will use the following diet at home:: Cardiac Your food should be the consistency of: Regular Your liquids should be the consistency of: Regular/Thin Weight Bearing Status: Weight bearing as tolerated Call your doctor if you observe: Fever of 101 or Higher, Shortness of breath, Dizziness, Fainting spells, Swelling in the ankles, Increased palpitations (irregular heartbeat) Instructions: Coronavirus Disease 2019 (COVID-19): Caring for Yourself or Others Additional Instructions: remain in self isolation till July 17, 2020, to give a total of 10 days of isolation since diagnosis. Allergies/Adverse Reactions: Allergies codeine Allergy (Verified 07/07/20 18:12) Other erythromycin lactobionate [From Erythrocin] Allergy (Verified 07/07/20 18:12) Other Medications to take at Discharge Atenolol [Tenormin (beta venu)] 25 mg PO DAILY 01/13/15 Calcium Carbonate [Calcium] 600 mg PO DAILY 01/13/15 Cholecalciferol (VIT D3) [Vitamin D3] 1,000 unit PO DAILY 01/13/15 Potassium 20 mg PO DAILY 01/13/15 Triamterene/Hydrochlorothiazid [Triamterene-Hctz 37.5-25 mg Tb] 1 tablet PO DAILY 01/13/15 Aspirin [Aspirin, Baby] 81 mg PO DAILY@0800 03/28/17 DiphenhydrAMINE [Benadryl] 50 mg PO QHS PRN PRN 03/28/17 Multivitamin [Daily Multiple Vitamin] 1 each PO DAILY 03/28/17 [place]-3 Fatty Acids [Fish Oil] 1,200 mg PO DAILY 03/28/17 Atorvastatin Calcium 10 mg PO QHS 07/18/19 Ondansetron [Zofran Odt] 4 mg PO Q6H PRN PRN #20 tab 07/18/19 Primary Care Physician: Rick Dupont MD [Primary Care Provider] - Please follow up with your Primary Care Physician in: 2-3 weeks Test Results: Test results from this visit will be discussed in further detail at your follow-up appointment, if applicable. Proposed Discharge Date: 07/11/20
--- NOTE | 2020-07-11 10:24 | DS.PCM_ITS ---
Discharge Date and Diagnosis - Problem List Patient Problems: Active and Suspected Problems COVID-19 (Acute) Date of Admission: 07/07/20 Date of Discharge: 07/11/20 - Primary Discharge Diagnosis Acute Problems: Active Problems COVID-19 (Acute) - Secondary Discharge Diagnosis Chronic Problems: Chronic Problems Hypertension (Chronic) High cholesterol (Chronic) Hypothyroidism (Chronic) Hospital Course and Treatment Imaging Results: Diagnostic Data Chest X-Ray 07/07/20 18:55 IMPRESSION: Degenerative changes, as described above. No demonstrated acute cardiopulmonary process. Electronically Signed: Oli Hess MD at 19:20 EST , Service support , infectious disease- Dr Koenig Operations: None Procedures: None Summary of Care Provided: The patient is a 74 year old F with a past medical history as outlined was admitted with a complaint of weakness and dizziness as well as cough and lightheadedness. On admission she tested positive for Covid and was managed for COVID-19 infection. Patient was not hypoxic. ID was consulted and she was started on remdesivir. Her symptoms subsequently resolved. Hospital stay was complicated by hypokalemia which improved with replacement. Patient remained stable and was discharged home on 07/11/2020. She should continue to be in self- isolation until July. Per ID, she was to be in isolation for total of 10 days since she was not hypoxic. She is follow-up with her primary care doctor within 1 to 2 weeks. Patient seen and examined prior to discharge. She had no complaints. Review of symptoms otherwise negative. Labs and vitals reviewed. Her medication reviewed and reconciled. O/E: Vital Signs Temp Pulse Resp BP Pulse Ox 97.9 F 86 16 144/68 H 98 07/11/20 09:49 07/11/20 09:49 07/11/20 09:49 07/11/20 09:49 07/11/20 09:49 General: Alert, Oriented x3, Cooperative, HEENT: Atraumatic, PERRLA, EOMI, Normocephalic Oral: Dry Mucosa Neck: Supple, No JVD, Negative Carotid Bruits Lungs: Clear to auscultation, Normal air movement, No rhonchi, No wheeze, No rales Cardiovascular: Regular rate, Regular Rhythm, Normal S1, Normal S2, No murmurs Abdomen: Bowel Sounds Present, Soft, Non Tender, Non-Distended, No Hepato- splenomegaly Extremities: No clubbing, No cyanosis, No edema, Capillary Refill Less than 3 Seconds Skin: No rashes, No breakdown Musculoskeletal: No Tenderness to Palpation of Joints or Extremities Lymphatic: No Cervical, Supraclavicular, or Inguinal Adenopathy Neurological: Cranial nerves II-XII grossly intact, Neuro grossly intact, Motor Exam 5/5 strength throughout Psych/Mental Status: Flat affect, Appropriate, Alert and oriented to time, place, person, mood and affect Plan is for discharge home today. Patient Problems: Active and Suspected Problems COVID-19 (Acute) - Physical Exam Vitals/I&O's: Vital Signs Temp Pulse Resp BP Pulse Ox 97.9 F 86 16 144/68 H 98 07/11/20 09:49 07/11/20 09:49 07/11/20 09:49 07/11/20 09:49 07/11/20 09:49 Oxygen Delivery Method Room Air Weight: 157 lb 6.561 oz Body Mass Index (BMI) 26.7 Intake and Output for Last 24 Hours 07/09/20 07/10/20 07/11/20 23:59 23:59 23:59 Intake Total 970 / 970 850 / 900 50 / 50 Output Total 550 / 950 800 / 800 Balance 420 / 20 50 / 100 50 / 50 Laboratory Results 07/10/20 07:50: Sodium Cancelled, Potassium Cancelled, Chloride Cancelled, Carbon Dioxide Cancelled, Anion Gap Cancelled, BUN Cancelled, Creatinine Cancelled, Estim Creat Clear Calc Cancelled, Est GFR (MDRD) Af Amer Cancelled, Est GFR (MDRD) Non-Af Cancelled, BUN/Creatinine Ratio Cancelled, Glucose Cancelled, Calcium Cancelled 07/10/20 14:45: Sodium 133 L, Potassium 3.4 L, Chloride 98, Carbon Dioxide 28.0, Anion Gap 7, BUN 17, Creatinine 0.90, Estim Creat Clear Calc 50.09, Est GFR (MDRD) Af Amer 79, Est GFR (MDRD) Non-Af 66, BUN/Creatinine Ratio 19.0, Glucose 110 H, Calcium 9.1 07/11/20 06:50: WBC 8.9, RBC 5.03, Hgb 15.0, Hct 44.3, MCV 88.1, MCH 29.8, MCHC 33.9, RDW Std Deviation 40.9, RDW Coeff of Kevin 12.6, Plt Count 259, MPV 9.9, Immature Gran % (Auto) 0.300, Neut % (Auto) 58.4, Lymph % (Auto) 31.0, [place] % (Auto) 9.6, Eos % (Auto) 0.5, Baso % (Auto) 0.2, Absolute Neuts (auto) 5.2, Absolute Lymphs (auto) 2.75, Nucleated RBC % 0 07/11/20 06:50: Sodium 133 L, Potassium 3.4 L, Chloride 96 L, Carbon Dioxide 29.0, Anion Gap 8, BUN 17, Creatinine 0.90, Estim Creat Clear Calc 50.09, Est GFR (MDRD) Af Amer 78, Est GFR (MDRD) Non-Af 65, BUN/Creatinine Ratio 18.8, Glucose 107 H, Calcium 9.3, Total Bilirubin 0.80, AST 33, ALT 36, Alkaline Phosphatase 76, Total Protein 7.0, Albumin 3.4, Globulin 3.6, Albumin/Globulin Ratio 0.9 Current Medications Acetaminophen (Acetaminophen 325 Mg Tablet) 650 mg PO Q6H PRN PRN PRN Reason: Pain Score 1-10/Temp > 100.7 F Al Hydroxide/Mg Hydroxide (Mag Hydrox/Al Hydrox/Simeth 30 Ml Udc) 30 ml PO Q6H PRN PRN PRN Reason: Gastric Burning Albuterol Sulfate (Albuterol Sulfate 18 Gm Inhaler (200 Puffs)) 4 - 8 puff IH Q4H PRN PRN PRN Reason: Dyspnea, wheezing Aspirin (Aspirin 81 Mg Tab.Chew) 81 mg PO DAILY [facility] Last Admin: 07/11/20 09:45 Dose: 81 mg Documented by: Atenolol (Atenolol 25 Mg Tablet) 25 mg PO DAILY [facility] Last Admin: 07/11/20 09:45 Dose: 25 mg Documented by: Atorvastatin Calcium (Atorvastatin Calcium 10 Mg Tablet) 10 mg PO QHS [facility] Last Admin: 07/10/20 23:03 Dose: 10 mg Documented by: Enoxaparin Sodium (Enoxaparin 30 Mg/0.3 Ml Syringe) 30 mg SC BID [facility] Last Admin: 07/11/20 09:44 Dose: 30 mg Documented by: Guaifenesin (Guaifenesin 10 Ml Udc (200mg/10ml)) 20 ml PO Q4H PRN PRN PRN Reason: COUGH Hydralazine HCl (Hydralazine 20 Mg/Ml Vial) 10 mg IV Q4H PRN PRN PRN Reason: SBP > 160 Sodium Chloride () 250 mls @ 15 mls/hr IV .[id number] PRN PRN Reason: Saline Flush Sodium Chloride () 250 mls @ 15 mls/hr IV .[id number] PRN PRN Reason: Additional IVPB Infusion Remdesivir 100 mg/ Sodium (Chloride) 250 mls @ 125 mls/hr IV DAILY [facility]; Protocol Stop: 07/12/20 11:59 Last Admin: 07/11/20 09:45 Dose: 167 mls/hr Documented by: Magnesium Hydroxide (Magnesium Hydroxide 30 Ml Udc) 30 ml PO DAILY PRN PRN PRN Reason: Constipation Melatonin (Melatonin 3 Mg Tablet) 3 mg PO QHS PRN PRN PRN Reason: INSOMNIA Last Admin: 07/10/20 23:03 Dose: 3 mg Documented by: Miscellaneous Information (Inhaler, Assist Devices 1 Each Spacer) 1 each INHALATION PRN PRN PRN Reason: WITH ALBUTEROL INHALER Nutritional Formula (Lactose Free) (Ensure Enlive 120 Ml Liquid) 120 ml PO 4X/DAY [facility] Last Admin: 07/11/20 09:46 Dose: 120 ml Documented by: Ondansetron HCl (Ondansetron 4 Mg/2 Ml Vial) 4 mg IV Q8H PRN PRN PRN Reason: NAUSEA/VOMITING Last Admin: 07/10/20 23:11 Dose: 4 mg Documented by: Prochlorperazine Edisylate (Prochlorperazine 10 Mg/2 Ml Vial) 5 mg IV Q4H PRN PRN PRN Reason: Breakthrough nausea/vomiting Psyllium Hydrophilic Mucilloid (Psyllium 1 Packet) 1 packet PO DAILY PRN PRN PRN Reason: Constipation Senna/Docusate Sodium (Senna/Docusate Sodium 1 Tablet) 2 tablet PO BID PRN PRN PRN Reason: Constipation Sodium Chloride (0.9% Saline Lock 10 Ml Syringe) 10 - 40 ml IV UD PRN PRN Reason: SALINE FLUSH Last Admin: 07/09/20 20:11 Dose: 10 ml Documented by: Throat Lozenges (Benzocaine/Menthol 1 Lozenge) 1 lozenge MUCOUS MEM Q2H PRN PRN PRN Reason: SORE THROAT Triamterene/Hydrochlorothiazide (Triamterene 37.5mg/Hctz 25mg Capsule) 1 cap PO DAILY [facility] Last Admin: 07/11/20 09:45 Dose: 1 cap Documented by: Discharge Diet: Low fat/ Low Cholesterol Discharge Activity: Return to Normal Activity Weight Bearing Status: Weight bearing as tolerated Call your doctor if you observe: Fever of 101 or Higher, Shortness of breath, Dizziness, Fainting spells, Swelling in the ankles, Increased palpitations (irregular heartbeat) Home Medications: Medications to take at Discharge Atenolol [Tenormin (beta venu)] 25 mg PO DAILY 01/13/15 Calcium Carbonate [Calcium] 600 mg PO DAILY 01/13/15 Cholecalciferol (VIT D3) [Vitamin D3] 1,000 unit PO DAILY 01/13/15 Potassium 20 mg PO DAILY 01/13/15 Triamterene/Hydrochlorothiazid [Triamterene-Hctz 37.5-25 mg Tb] 1 tablet PO DAILY 01/13/15 Aspirin [Aspirin, Baby] 81 mg PO DAILY@0800 03/28/17 DiphenhydrAMINE [Benadryl] 50 mg PO QHS PRN PRN 03/28/17 Multivitamin [Daily Multiple Vitamin] 1 each PO DAILY 03/28/17 [place]-3 Fatty Acids [Fish Oil] 1,200 mg PO DAILY 03/28/17 Atorvastatin Calcium 10 mg PO QHS 07/18/19 Ondansetron [Zofran Odt] 4 mg PO Q6H PRN PRN #20 tab 07/18/19 Primary Care Physician: Rick Dupont MD [Primary Care Provider] - Please follow up with your Primary Care Physician in: 2-3 weeks Patient Instructions: Coronavirus Disease 2019 (COVID-19): Caring for Yourself or Others Disposition: Home Minutes spent on discharge:: 40 Patient Condition:: Stable Medical Necessity - Tobacco Use Smoking Status: Never smoker Tobacco Use: Non-smoker Meaningful Use Info Meaningful Use Diagnoses (Choose all that apply): None applicable Inpatient E&M: [id number] Disch Hosp
--- NOTE | 2020-07-15 10:45 | NURSING ---
CE[facility] DC F/U CALL: Discharge Date: 07/11/20 Discharge Diagnosis: COVID-19 (Acute) Discharge Disposition: Home with Rx: Atenolol [Tenormin (beta venu)] 25 mg PO DAILY 01/13/15 , Calcium Carbonate [Calcium] 600 mg PO DAILY 01/13/15 , Cholecalciferol (VIT D3) [Vitamin D3] 1,000 unit PO DAILY 01/13/15 , Potassium 20 mg PO DAILY 01/13/15 Triamterene/Hydrochlorothiazid [Triamterene-Hctz 37.5-25 mg Tb] 1 tablet PO DAILY 01/13/15 , Aspirin [Aspirin, Baby] 81 mg PO DAILY@0800 03/28/17 , DiphenhydrAMINE [Benadryl] 50 mg PO QHS PRN PRN 03/28/17 , Multivitamin [Daily Multiple Vitamin] 1 each PO DAILY 03/28/17 , Laurel-3 Fatty Acids [Fish Oil] 1,200 mg PO DAILY 03/28/17 , Atorvastatin Calcium 10 mg PO QHS 07/18/19 , Ondansetron [Zofran Odt] 4 mg PO Q6H PRN PRN #20 tab 07/18/19 Lace/Strata: 10/13 Called patient listed cell phone number, patient answered and this engineering writer introduced self and role. Patient states that she is feeling better, some weakness in the morning starting out but then gets better an improves throughout the day after moving around. Confirmed picked up her DC medications with no issues, concerns or questions. Denies any concerns with DC f/u. Thanked patient for using [facility] for her care and phone conversation ended. CECILIA Dwyer
== END 2020-07-11 12:40 | disposition home or self-care (01) | DRG 179 ==
LOC: ED 22:26 → ICU 07-08 06:21
PROVIDERS: Internal Medicine Infectious Disease; Admitting Provider Family Medicine; Emergency Provider Emergency Medicine; PCP Family Medicine; Visit Provider Student in an Organized Health Care Education/Training Program
DX: U07.1 COVID-19 (principal); E87.6 Hypokalemia; I10 Essential (primary) hypertension; E78.5 Hyperlipidemia, unspecified; E03.9 Hypothyroidism, unspecified; Z79.82 Long term (current) use of aspirin; Z79.899 Other long term (current) drug therapy
CPT/HCPCS: 71045; 80048; 80053; 80076; 81001; 82728; 83615; 83735; 83880; 84145; 84439; 84443; 84484; 85025; 85379; 86140; 87426; 87449; 87633; 87804; 93005; 97162; 97802; 99251; 99285; J7030; J7040; J7050; A4216; G0463; J2405

== ENCOUNTER 2020-10-30 15:05 | Outpatient (RCR) | payer MEDICARE, OTHER, SELFPAY ==
[2020-07-08 00:11] VITALS: BMI 26.7
== END 2020-12-04 23:59 ==
LOC: IMMUN 15:05
PROVIDERS: PCP Family Medicine; Visit Provider Family Medicine
DX: Z23 Encounter for immunization (principal)
CPT/HCPCS: 0001A; 91300

== ENCOUNTER 2022-06-19 10:33 | Emergency (ER) | payer MEDICARE, OTHER, SELFPAY ==
[2022-06-19] VITALS (8 sets, daily range): BP systolic 106–127; BP diastolic 47–66; PULSE 77–97; RESP 15–23; TEMP 36.4; O2SAT 95–97; BMI 29.7
--- NOTE | 2022-06-19 10:43 | EDS_ITS ---
HPI <HOLLI Mclaughlin - Last Filed: 06/19/22 18:32> History of Present Illness Chief Complaint: Overdose Narrative Narrative: 76-year-old female took her 's medications this morning at 8 AM. It included lisinopril 20 mg, doxazosin 4 mg, sertraline 25 mg and a multivitamin. She noticed an hour later she felt weak and had mistakenly taken the wrong meds. She is not on any medication for blood pressure. She denies headache, chest pain or shortness of breath, nausea or vomiting. PFSH <HOLLI Mclaughlin - Last Filed: 06/19/22 18:32> [facility] Home Medications atenolol 25 mg tablet 25 mg PO DAILY 01/13/15 [History Last Taken 07/07/20 09:00] calcium carbonate 600 mg calcium (1,500 mg) tablet 600 mg PO DAILY 01/13/15 [History Last Taken 07/07/20 09:00] cholecalciferol (vitamin D3) 25 mcg (1,000 unit) tablet (Vitamin D3) 1,000 unit PO DAILY 01/13/15 [History Last Taken 07/07/20 09:00] potassium 99 mg tablet 20 mg PO DAILY 01/13/15 [History Last Taken 07/07/20 09:00] aspirin 81 mg chewable tablet 81 mg PO DAILY@0800 03/28/17 [History Last Taken 07/07/20 09:00] multivitamin (Daily Multiple tablet) 1 ea PO DAILY 03/28/17 [History Last Taken 07/07/20 09:00] omega 3-dha 60 mg-epa 90 mg-fish oil 500 mg capsule, delayed release (Fish Oil) 1,200 mg PO DAILY 03/28/17 [History Last Taken 07/07/20 09:00] ondansetron 4 mg disintegrating tablet 4 mg PO Q6H PRN PRN Nausea #20 tabs 07/18/19 [Rx Last Taken Unknown] atorvastatin 10 mg tablet 25 mg PO QHS 05/31/22 [History Last Taken Unknown] Allergy/AdvReac Type Severity Reaction Status Date / Time codeine Allergy Other Verified 05/31/22 13:05 erythromycin lactobionate Allergy Other Verified 05/31/22 13:05 [From Erythrocin] Surgical History (Updated 01/17/23 @ 13:03 by Alyse Amador) S/P colonoscopy Social History (Updated 05/31/22 @ 13:03 by Alyse Amador) Smoking Status: Never smoker alcohol intake: never substance use type: does not use ROS <HOLLI Mclaughlin - Last Filed: 06/19/22 18:32> ROS ED ROS Narrative Constitutional: Negative for fever, chills, malaise. CVS: Negative for palpitations, chest pain, syncope. Respiratory: Negative for shortness of breath, cough. GI: Negative for abdominal pain, nausea, vomiting. Neuro: Negative for headache, motor/sensory dysfunction. Skin: Negative for rash, abscess, or wound. Musc: Negative for joint pain, swelling, trauma. EXAM <HOLLI Mclaughlin - Last Filed: 06/19/22 18:32> Physical Exam Narrative Exam Narrative: CONST: Patient sitting in no acute distress. ENT: Normal inspection, moist mucous membranes. NECK: Normal inspection. RESP: No respiratory distress, CTAB. CVS: Regular rate and rhythm, no murmur, no gallop. ABD: Soft and nontender, no guarding or rebound. SKIN: Color normal, no rash, warm, dry, intact. EXTREMITIES: Normal appearance, no pedal edema. NEURO: Oriented x4. PSYCH: Normal affect. Const Vital Signs: 06/19/22 10:35 06/19/22 10:41 06/19/22 11:28 Temperature 97.6 F L Temperature Source Oral Pulse Rate 79 77 Respiratory Rate 15 18 Respiratory Effort Normal Non-Labored Respiratory Pattern Normal Blood Pressure 106/47 L 109/47 L Blood Pressure Mean 66 67 Pulse Ox 95 95 Oxygen Delivery Method Room Air Room Air 06/19/22 12:00 06/19/22 13:00 06/19/22 14:00 Temperature Temperature Source Pulse Rate 78 83 96 Respiratory Rate 18 16 23 H Respiratory Effort Respiratory Pattern Blood Pressure 108/56 L 109/53 L 110/66 Blood Pressure Mean 73 71 80 Pulse Ox 97 95 95 Oxygen Delivery Method Room Air Room Air Room Air 06/19/22 16:00 06/19/22 17:00 06/19/22 18:25 Temperature Temperature Source Pulse Rate 95 97 91 Respiratory Rate 18 17 17 Respiratory Effort Respiratory Pattern Blood Pressure 124/55 H 127/63 H 117/54 L Blood Pressure Mean 78 84 Pulse Ox 95 97 Oxygen Delivery Method Room Air <Dr. Adri Joseph MD - Last Filed: 06/19/22 14:46> Physical Exam Const Vital Signs: 06/19/22 10:35 06/19/22 10:41 06/19/22 11:28 Temperature 97.6 F L Temperature Source Oral Pulse Rate 79 77 Respiratory Rate 15 18 Respiratory Effort Normal Non-Labored Respiratory Pattern Normal Blood Pressure 106/47 L 109/47 L Blood Pressure Mean 66 67 Pulse Ox 95 95 Oxygen Delivery Method Room Air Room Air 06/19/22 12:00 06/19/22 13:00 06/19/22 14:00 Temperature Temperature Source Pulse Rate 78 83 96 Respiratory Rate 18 16 23 H Respiratory Effort Respiratory Pattern Blood Pressure 108/56 L 109/53 L 110/66 Blood Pressure Mean 73 71 80 Pulse Ox 97 95 95 Oxygen Delivery Method Room Air Room Air Room Air 06/19/22 16:00 06/19/22 17:00 06/19/22 18:25 Temperature Temperature Source Pulse Rate 95 97 91 Respiratory Rate 18 17 17 Respiratory Effort Respiratory Pattern Blood Pressure 124/55 H 127/63 H 117/54 L Blood Pressure Mean 78 84 Pulse Ox 95 97 Oxygen Delivery Method Room Air MDM <HOLLI Mclaughlin - Last Filed: 06/19/22 18:32> [facility] Narrative Medical decision making narrative: Patient accidentally took her 's medications this morning including lisinopril 20 mg, doxazosin 4 mg, and sertraline 25 mg. She developed generalized weakness and when she realized her mistake came in for evaluation. She is awake and nontoxic-appearing. BP 106/47, HR 79, and otherwise normal vital signs. Her medical exam is benign. Doxazosin peaks around 2 to 4 hours after administration and lisinopril around 6 hours. After being monitored for about 6 hours she felt well but became dizzy when trying to walk. Plan will be to monitor and discharge after her symptoms improved. Patient reassessed at 1629. She was able to take about 4-5 steps before feeling too lightheaded and had to rest. BP is 124/55, HR 95. We will continue to monitor. Patient was reevaluated at 1800 and is walking without assistance and feeling fine and is comfortable going home. <Dr. Adri Joseph MD - Last Filed: 02/05/23 14:46> [facility] Treatment and Re-Evaluation Narrative: Patient seen and evaluated with AKIRA. I personally interviewed and examined the patient. I was involved in all aspects of patient's orders, interpretation of results, and treatment. Patient presents after accidental ingestion of her 's medications. She was placing her 's medications on a daily pill reminder when she inadvertently took a dose of his lisinopril and doxazosin. Ingestion occurred at 8 AM. About an hour later she states she started feeling slightly lightheaded and dizzy. She states her normal systolic blood pressure is around 140. Patient sitting upright in bed no acute distress. Systolic blood pressure at home my exam is around 105. Head and neck examination unremarkable. Heart is regular rate and rhythm. Lung sounds are clear. Abdomen is soft and nontender. Neuro exam is normal. Patient is placed on surveillance system monitor. She is given IV fluids. Lisinopril tends to peak its effect at 6 to 7 hours postingestion. At 6 hours patient's blood pressure remained around 110 systolic. She felt well, however became dizzy when she got up to try to ambulate. We will continue observation at this time until symptomatology improves. Plan will be discharge to home at that time. Discharge Plan Triage Chief Complaint: Overdose Other Complaint: Weakness ED Midlevel Provider: Gertrude Pettit ED Provider: Adri Joseph Dx/Rx/DC Orders Clinical Impression: Accidental medication overdose, Low blood pressure Instructions: ED Accidental Ingestion ... Prescriptions: No Action atenolol 25 MG tablet 25 mg PO DAILY calcium carbonate 600 MG tablet 600 mg PO DAILY potassium 99 MG tablet 20 mg PO DAILY cholecalciferol (vitamin D3) [Vitamin D3] 1,000 UNIT tablet 1,000 unit PO DAILY multivitamin [Daily Multiple] 1 EACH tablet 1 ea PO DAILY aspirin 81 MG tablet,chewable 81 mg PO DAILY@0800 omega 1-qer-[id number]-fish oil [Fish Oil] 500 MG capsule,delayed release(DR/EC) 1,200 mg PO DAILY ondansetron 4 MG tablet 4 mg PO Q6H PRN PRN (Reason: Nausea) Qty: 20 0RF atorvastatin 10 mg tablet 25 mg PO QHS Primary Care Provider: Rick Dupont Referrals: Rick Dupont MD [Primary Care Provider] - Activity Restrictions/Additional Instructions: Drink plenty of fluids and rest. Return to ER if symptoms worsen. Disposition Disposition: Home, Self Care
[2022-06-19] MEDS: 0.9% Normal Saline 1,000 ML 150 ML IV (11:30)
== END 2022-06-19 18:34 | disposition home or self-care (01) ==
PROVIDERS: Emergency Provider Emergency Medicine; PCP Family Medicine; Visit Provider Emergency Medicine
DX: T50.901A Poisoning by unspecified drugs, medicaments and biological substances, accidental (unintentional), initial encounter (principal); R53.1 Weakness; I95.9 Hypotension, unspecified
CPT/HCPCS: 99285

== ENCOUNTER 2022-09-08 22:12 | Emergency (ER) | payer MEDICARE, OTHER, SELFPAY ==
[2022-09-08 22:13] VITALS: BP 129/68; PULSE 91; RESP 18; TEMP 36.8; O2SAT 98
--- NOTE | 2022-09-08 22:16 | EKG12_ITS ---
Test Reason : DYSRHYTHMIA Blood Pressure : / mmHG Vent. Rate : 089 BPM Atrial Rate : 089 BPM P-R Int : 200 ms QRS Dur : 090 ms QT Int : 620 ms P-R-T Axes : 054 -19 063 degrees QTc Int : 754 ms Normal sinus rhythm Normal ECG Confirmed by AIYANA FRYE, REBECA ([id number]), content editor LAYNE OVIEDO ([id number]) on 09/12/2022 11:49:33 AM Referred By: MYESHA Confirmed By:KRISTI BRONSON MD
[2022-09-08 22:48] LABS: Absolute Lymphocyte Count 2.78 X10^3/uL (0.83-4.51); Absolute Neutrophil Count 11.6 X10^3/uL (2.0-7.7); Basophil# 0.05 X10^3/uL; Basophil% 0.3 % (0-1); Eosinophil# 0.15 X10^3/uL; Hematocrit 46.6 % (37-47); Hemoglobin 15.6 g/dL (12.0-15.0); Lymphocyte # 2.78 X10^3/ul (0.83-4.51); Lymphocyte % 17.8 % (19-41); Mean Corp Hgb Conc 33.5 g/dL (32-36); Mean Corpuscular Hgb 30.6 pg (27.0-32.0); Mean Corpuscular Volume 91.4 fL (81-99); Mean Platelet Vol. 10.1 fl (6.2-12.0); Monocyte# 1.07 X10^3/uL; Monocyte% 6.8 % (0-10); NRBC Flagged by Analyzer 0 % (0-5); Neutrophil # 11.55 X10^3/uL (2.7-7.7); Neutrophil % 73.8 % (47-70); Platelet Count 272 K/mm3 (150-450); RBC Distribution Width CV 12.9 % (11.6-14.6); RBC Distribution Width SD 43.3 fl (35.1-43.9); White Blood Count 15.7 K/mm3 (4.4-11.0)
[2022-09-08 22:59] LABS: Prothrombin Time (Protime)PT. 12.8 SECONDS (11.7-14.9)
[2022-09-08 23:00] LABS: Partial Thromboplast Time 29.6 Seconds (24.1-36.2)
[2022-09-08 23:01] LABS: Anion Gap 8 (5-15); BUN 17 mg/dL (7-18); BUN/Creat Ratio 15.2 RATIO (10-20); Chloride 94 mmol/L (98-107); Creatinine, Serum 1.12 mg/dL (0.55-1.02); EST Glomerular Filtration Rate 50 mL/min (>60); Est Glom Filt Rate - Afr Amer 61 mL/min (>60); Glucose 120 mg/dL (74-106); Sodium Level 131 mmol/L (136-145)
--- NOTE | 2022-09-08 23:05 | RAD_ITS ---
EXAM: XR CHEST, 1 VIEW CLINICAL INDICATION: Stroke TECHNIQUE: Frontal view of the chest. This report was created using [employer] report generation technology. COMPARISON: 07/07/2020 FINDINGS: LUNGS AND PLEURAL SPACES: Unremarkable. No consolidation or edema. No pneumothorax. No effusion. HEART: Unremarkable. Cardiac silhouette not enlarged. MEDIASTINUM: Central airways and mediastinal contour are unremarkable. BONES/JOINTS: Unremarkable. SOFT TISSUES: Unremarkable. RAD/Chest 1 View (Portable) IMPRESSION: No radiographic evidence of acute cardiopulmonary disease. Electronically Signed: Daren Sy MD at 23:22 EDT ,
[2022-09-09 00:11] VITALS: BMI 27.5
[2022-09-09] MEDS: Potassium Chloride 10mEq/100mL 10 MEQ/100 ML IV.SOLN. 100 MEQ IV BOLUS (00:19)
[2022-09-09] MEDS: 0.9% Normal Saline 1,000 ML 999 ML IV (00:19)
[2022-09-09 01:14] VITALS: BP 141/74; PULSE 90; RESP 20; O2SAT 95
--- NOTE | 2022-09-09 01:30 | EX.ED.DYSGE1 ---
HPI History of Present Illness Chief Complaint: Dizziness Informant: patient Narrative Narrative: Patient has had watery nonbloody diarrhea all day because she has been prepping for colonoscopy since about 24 hours ago, it is scheduled for tomorrow morning. She states she thinks maybe she is dehydrated because this evening every time she stands up she feels lightheaded like she may pass out. She has not had any syncopal episodes or vomiting and or any focal neurologic deficits, chest discomfort, dyspnea. No fevers or chills. Whenever she lies down she feels fine. Her colonoscopy is simply her 5-year screening, she has a family history of colon cancer. [facility] Medical History High cholesterol Hypertension Non-smoker Post-menopausal Restless legs Wears glasses Home Medications atenolol 25 mg tablet 25 mg PO DAILY 01/13/15 [History Last Taken 07/07/20 09:00] calcium carbonate 600 mg calcium (1,500 mg) tablet 600 mg PO DAILY 01/13/15 [History Last Taken 07/07/20 09:00] aspirin 81 mg chewable tablet 81 mg PO QHS 03/28/17 [History Last Taken 07/07/20 09:00] multivitamin (Daily Multiple tablet) 1 ea PO DAILY 03/28/17 [History Last Taken 07/07/20 09:00] omega 3-dha 60 mg-epa 90 mg-fish oil 500 mg capsule, delayed release (Fish Oil) 1,200 mg PO DAILY 03/28/17 [History Last Taken 09/02/22] atorvastatin 10 mg tablet 25 mg PO QHS 05/31/22 [History Last Taken Unknown] potassium chloride 20 mEq tablet,extended release 20 meq PO DAILY 09/05/22 [History Last Taken Unknown] diphenhydramine HCl 25 mg capsule (Benadryl) 25 mg PO QHS PRN Sleep 09/09/22 [History Last Taken Unknown] triamterene 37.5 mg-hydrochlorothiazide 25 mg capsule 1 cap PO DAILY 09/09/22 [History Last Taken Unknown] Allergy/AdvReac Type Severity Reaction Status Date / Time codeine Allergy Other Verified 09/08/22 22:15 erythromycin lactobionate Allergy Other Verified 09/08/22 22:15 [From Erythrocin] Surgical History S/P colonoscopy Social History Smoking Status: Never smoker alcohol intake: never substance use type: does not use ROS ROS ED Constitutional Constitutional ED: Denies chills or fever(s) Eyes Eyes: Denies change in vision or diplopia ENT ENT ED: Denies rhinorrhea or sore throat Cardiovascular Cardiovascular: Reports lightheadedness; Denies chest pain, palpitations or syncope Respiratory/Chest Respiratory/Chest: Denies cough or dyspnea Gastrointestinal Gastrointestinal: Reports diarrhea; Denies abdominal pain, nausea or vomiting Genitourinary Genitourinary ED: Denies dysuria or hematuria Musculoskeletal Musculoskeletal: Denies back pain or neck pain Integumentary Denies abscess or rash Neurologic Neurologic: Denies headache(s), paresthesias or weakness Psychiatric Psychiatric: Denies anxiety or suicidal thoughts EXAM Physical Exam Const Vital Signs: 09/08/22 22:13 09/09/22 00:27 09/09/22 01:14 Temperature 98.3 F Temperature Source Temporal Pulse Rate 91 90 Respiratory Rate 18 20 H Blood Pressure 129/68 H 141/74 H Blood Pressure Mean 88 96 Pulse Ox 98 95 Oxygen Delivery Method Room Air Room Air Room Air Positive well nourished and well developed General Appearance ED: well developed and NAD HEENT Reports moist mucous membranes normocephalic and atraumatic Eyes PERRL and EOMs intact bilaterally Neck full ROM and supple Resp normal respiratory effort and clear to auscultation bilaterally Cardio regular rate, regular rhythm and no murmurs GI non-tender and non-distended Auscultation: normoactive bowel sounds Palpation: soft Back/Spine no CVA tenderness General Back: other FROM Extremity normal to inspection General Extremety ED: Negative for edema, pulses abnormal or tenderness General Extremity: Negative for edema or pulses abnormal Neuro oriented x3, CN's II-XII intact bilaterally and no sensory deficits noted Sensorium / Orientation: awake and alert Motor Exam: strength 5/5 throughout Skin no rashes or lesions noted and no wounds MDM MDM MDM Narrative Medical decision making narrative: Labs obtained and noted. Nonspecific leukocytosis. Hypokalemia 3.0, we gave her 10 mill equivalents of potassium chloride IV in addition to a liter of fluid, she felt much better on reevaluation. Creatinine up a little bit, I am comfortable with her going home she is feeling better. Lab Data Attestation: I reviewed the patient's lab results. Labs: Laboratory Results - last 24 hr 09/08/22 09/08/22 09/08/22 22:33 22:33 22:33 WBC 15.7 H RBC 5.10 Hgb 15.6 H Hct 46.6 MCV 91.4 MCH 30.6 MCHC 33.5 RDW Std Deviation 43.3 RDW Coeff of Kevin 12.9 Plt Count 272 MPV 10.1 Immature Gran % (Auto) 0.300 Neut % (Auto) 73.8 H Lymph % (Auto) 17.8 L Burnett % (Auto) 6.8 Eos % (Auto) 1.0 Baso % (Auto) 0.3 Absolute Neuts (auto) 11.6 H Absolute Lymphs (auto) 2.78 Nucleated RBC % 0 PT 12.8 INR 1.0 APTT 29.6 Sodium 131 L Potassium 3.0 L Chloride 94 L Carbon Dioxide 29.0 Anion Gap 8 BUN 17 Creatinine 1.12 H Est GFR (MDRD) Af Amer 61 Est GFR (MDRD) Non-Af 50 L BUN/Creatinine Ratio 15.2 Glucose 120 H Calcium 10.0 Radiography Diagnostic Testing: Clinical Impression(s) from Imaging Studies Chest X-Ray 09/08/22 23:05 IMPRESSION: No radiographic evidence of acute cardiopulmonary disease. Electronically Signed: Daren Sy MD at 23:22 EDT , Discharge Plan Triage Chief Complaint: Dizziness ED Provider: Oli Cheema Dx/Rx/DC Orders Clinical Impression: Mild dehydration, Orthostasis, Hypokalemia due to excessive gastrointestinal loss of potassium Instructions: ED Hypotension, Orthostatic Prescriptions: No Action atenolol 25 MG tablet 25 mg PO DAILY calcium carbonate 600 MG tablet 600 mg PO DAILY multivitamin [Daily Multiple] 1 EACH tablet 1 ea PO DAILY aspirin 81 MG tablet,chewable 81 mg PO QHS Fish Oil 500 MG capsule,delayed release(DR/EC) 1,200 mg PO DAILY atorvastatin 10 mg tablet 25 mg PO QHS potassium chloride 20 mEq Tablet Extended Release 20 meq PO DAILY triamterene-hydrochlorothiazid 37.5-25 mg capsule 1 cap PO DAILY Label Comments: TAKE 1 CAPSULE BY MOUTH ONCE DAILY diphenhydramine HCl [Benadryl] 25 mg Capsule 25 mg PO QHS PRN (Reason: Sleep) Primary Care Provider: Rick Dupont Referrals: Rick Dupont MD [Primary Care Provider] - As Needed Disposition Disposition: Home, Self Care
[2022-09-09 01:45] VITALS: BP 138/72; PULSE 75; RESP 16; O2SAT 98
== END 2022-09-09 01:46 | disposition home or self-care (01) ==
PROVIDERS: Emergency Provider Emergency Medicine; PCP Family Medicine; Visit Provider Emergency Medicine
DX: E86.0 Dehydration (principal); E87.6 Hypokalemia; E78.00 Pure hypercholesterolemia, unspecified; I10 Essential (primary) hypertension; Z78.0 Asymptomatic menopausal state; Z79.82 Long term (current) use of aspirin; Z79.899 Other long term (current) drug therapy
CPT/HCPCS: 71045; 80048; 85025; 85610; 85730; 93005; 96365; 99284; J7030; A4216

== ENCOUNTER 2023-11-22 20:21 | Emergency (ER) | payer MEDICARE, OTHER, SELFPAY ==
[2023-11-22 20:27] VITALS: BP 158/67; BP 173/72; PULSE 73; PULSE 74; RESP 16; RESP 17; TEMP 36.6; O2SAT 95; O2SAT 98; BMI 30.6
--- NOTE | 2023-11-22 21:15 | EKG12_ITS ---
Test Reason : SYNCOPE Blood Pressure : / mmHG Vent. Rate : 070 BPM Atrial Rate : 070 BPM P-R Int : 236 ms QRS Dur : 090 ms QT Int : 440 ms P-R-T Axes : 060 -27 058 degrees QTc Int : 475 ms Sinus rhythm with 1st degree A-V block Nonspecific T wave abnormality Prolonged QT Abnormal ECG Confirmed by AIYANA FRYE, REBECA ([id number]), graphics editor LAYNE OVIEDO ([id number]) on 11/29/2023 10:34:30 A M Referred By: GINA Confirmed By:KRISTI BRONSON MD
--- NOTE | 2023-11-22 21:22 | EDS_ITS ---
HPI History of Present Illness Chief Complaint: Syncope Detail of Chief Complaint: Near syncope. Patient never passed out. Informant: patient, spouse/S.O. and family Onset/Context/Timing Onset: Today and Hours Context: Sudden Onset Maximum Severity: Moderate Narrative Narrative: 78-year-old female history of hypertension only. No cardiac disease. She is not diabetic. Denies any recent illness. Tonight she was seated at [employer] in the basement it was cool it was not hot. She became lightheaded and fell like she might pass out. They laid her down. She is feeling better. She said this happened 2 other times. Has never actually lost consciousness. She denies any headache nor chest pain nor abdominal pain or shortness of breath. She denies any recent illness. No nausea, vomiting or diarrhea. No fever or chills. No melena. Has not been recently ill. Said once happened before she was dehydrated. Prior similar symptoms: Yes Recent Illness/Hospitalization: No PFSH PFS Medical History Wears glasses Post-menopausal High cholesterol Restless legs Non-smoker Hypertension Home Medications ?Medication ?Instructions ?Recorded ?Last Taken ?Type atenolol 25 mg tablet 25 mg PO DAILY 01/13/15 07/07/20 09:00 History calcium carbonate 600 mg PO DAILY 01/13/15 07/07/20 09:00 History aspirin 81 mg chewable tablet 81 mg PO QHS 03/28/17 07/07/20 09:00 History multivitamin (Daily Multiple 1 ea PO DAILY 03/28/17 07/07/20 09:00 History tablet) omega 3-dha 60 mg-epa 90 mg-fish 1,200 mg PO DAILY 03/28/17 09/02/22 History oil 500 mg capsule, delayed release (Fish Oil) atorvastatin 10 mg tablet 25 mg PO QHS 05/31/22 Unknown History potassium chloride 20 mEq 20 meq PO DAILY 09/05/22 Unknown History tablet,extended release diphenhydramine HCl 25 mg capsule 25 mg PO QHS PRN Sleep 09/09/22 Unknown History (Benadryl) triamterene 37.5 1 cap PO DAILY 09/09/22 Unknown History mg-hydrochlorothiazide 25 mg capsule Allergy/AdvReac Type Severity Reaction Status Date / Time codeine Allergy Other Verified 09/08/22 22:15 erythromycin lactobionate Allergy Other Verified 09/08/22 22:15 (From Erythrocin) Surgical History S/P colonoscopy Social History Smoking Status: Never smoker alcohol intake: never substance use type: does not use ROS ROS ED Review of Systems ROS Unobtainable: Denies due to encephalopathy Constitutional Constitutional ED: Denies chills or fever(s) Eyes Eyes: Denies blurry vision ENT ENT ED: Denies ear pain Cardiovascular Cardiovascular: Denies chest pain Respiratory/Chest Respiratory/Chest: Denies cough or dyspnea Gastrointestinal Gastrointestinal: Denies abdominal pain Genitourinary Genitourinary ED: Denies dysuria or hematuria Musculoskeletal Musculoskeletal: Denies arthralgias or back pain Integumentary Denies abscess or Abrasions Neurologic Neurologic: Denies headache(s) or paresthesias Psychiatric Psychiatric: Denies anxiety or depression Endocrine Endocrinology: Denies cold intolerance Hematologic/Lymphatic Hematologic/Lymphatic: Reports none Allergic/Immunologic Allergic/Immunologic ED: Denies mouth swelling, tongue swelling or urticaria EXAM Physical Exam Narrative Exam Narrative: 78-year-old female no acute distress vital signs stable afebrile. Sitting upright in bed. Family at bedside. H EENT exam unremarkable atraumatic. Pupils round react to light. No facial droop. Neck nontender. Lungs clear to auscultation bilateral. Heart regular rhythm rate about 70 no murmur. Chest wall and ribs are nontender. Abdomen soft nontender. Moving all 4 extremities. 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 Dorsi plantarflexion intact. Able to raise both upper and lower extremities no drift. Fingertip to nose [id number] within normal limits. NIH 0. Normal speech. Exam is benign. Const Vital Signs: 11/22/23 20:27 11/22/23 20:27 11/22/23 20:32 Temperature 97.9 F Temperature Source Oral Pulse Rate 73 74 Respiratory Rate 17 16 Respiratory Effort Normal Respiratory Pattern Normal Blood Pressure 173/72 H 158/67 H Blood Pressure Mean 105 97 Pulse Ox 98 95 Oxygen Delivery Method Room Air Room Air 11/22/23 21:33 11/22/23 22:21 Temperature Temperature Source Pulse Rate 75 Respiratory Rate 16 Respiratory Effort Respiratory Pattern Blood Pressure 163/69 H Blood Pressure Mean 100 Pulse Ox 96 Oxygen Delivery Method Room Air Room Air Positive well nourished and well developed; Negative for cachectic, contractures or unkempt General Appearance ED: well developed and NAD; Negative for unkempt, cachectic, contractures, cyanotic, diaphoretic or pallor Nutritional Appearance: Negative for cachectic HEENT Reports moist mucous membranes; Denies dry mucous membranes Negative for trauma or tenderness Mouth ED: No dry mucous membranes Mouth: No dry mucous membranes Eyes PERRL and EOMs intact bilaterally General Eye ED: Negative for pale conjunctiva or scleral icterus Neck no lymphadenopathy, supple and no JVD General: Negative for tenderness Lymph Lymphatic: Negative for other Chest Wall inspection of chest normal and palpation of chest normal Chest: Negative for other Resp normal respiratory effort and clear to auscultation bilaterally Effort and Inspection: Negative for retractions Auscultation: Negative for rales, rhonchi, wheezes or diminished lung sounds Cardio regular rate, regular rhythm, S1 normal heart sound, S2 normal heart sound and no murmurs Palpation: Negative for palpable S3 Rate: Negative for bradycardia or tachycardic Rhythm: Negative for abnormal rhythm GI normal to inspection, nondistended, normoactive bowel sounds, non-tender, non- distended and no masses Inspection: Negative for abdominal distention Auscultation: normoactive bowel sounds Palpation: soft; Negative for tender or guarding Back/Spine no CVA tenderness General Back: Negative for CVA tenderness Cervical Spine: Negative for cervical spine tenderness Thoracic Spine / Upper Back: Negative for thoracic spinal tenderness or paraspinal muscle tenderness Lumbar Spine / Lower Back: Negative for lumbar spinal tenderness Extremity normal to inspection General Extremety ED: Negative for edema or tenderness General Extremity: Negative for edema Neuro oriented x3, CN's II-XII intact bilaterally and no sensory deficits noted Sensorium / Orientation: alert; Negative for orientation impaired, lethargic or stuporous Motor Exam: strength 5/5 throughout; Negative for general weakness or strength abnormal Psych mental status grossly normal Appearance: Negative for unkempt Attitude: No agitated Mood & Affect: Negative for depressed, anxious or tearful Skin no rashes or lesions noted and no wounds General Skin Exam: Negative for jaundice or pallor Lesions: No lesion noted Rashes: No rashes noted Wounds: Negative for wounds noted MDM MDM MDM Narrative Medical decision making narrative: 78-year-old female seated near syncopal episode. She has had 2 other times. No specific cause possibly from dehydration in the past. Exam is benign. She will undergo cardiac workup and receive IV fluids. She does not need a CAT scan. Her neurologic exam is completely normal. Repeat exam patient is doing well. She received IV fluids. Do not have a specific cause for near syncope. She may have some mild dehydration. Repeat exams unchanged. Vital signs are stable and afebrile. Covered with her being discharged home with outpatient follow-up as needed. History & Record Review Discussion w/independent historian: Patient and Family Additional record(s) reviewed:: Prior inpatient record, Prior outpatient record, Prior ED visit and Prior labs Lab Data Attestation: I reviewed the patient's lab results. Lab results narrative: CBC shows a white 11.8. H&H 13 and 39. Platelets 220. Electrolytes show gap 7. BUN 22 creatinine 1.19. Glucose 118. Troponin 4. Labs: Laboratory Results - last 24 hr 11/22/23 21:25 WBC 11.8 H RBC 4.39 Hgb 13.4 Hct 39.9 MCV 90.9 MCH 30.5 MCHC 33.6 RDW Std Deviation 42.4 RDW Coeff of Kevin 12.9 Plt Count 220 MPV 10.0 Immature Gran % (Auto) 0.300 Neut % (Auto) 75.7 H Lymph % (Auto) 16.4 L [place] % (Auto) 6.2 Eos % (Auto) 1.1 Baso % (Auto) 0.3 Absolute Neuts (auto) 9.0 H Absolute Lymphs (auto) 1.94 Nucleated RBC % 0 Sodium 137 Potassium 3.9 Chloride 102 Carbon Dioxide 28.0 Anion Gap 7 BUN 22 H Creatinine 1.19 H Estim Creat Clear Calc 40.76 Est GFR (MDRD) Af Amer 57 L Est GFR (MDRD) Non-Af 47 L BUN/Creatinine Ratio 18.5 Glucose 118 H Calcium 9.1 Troponin I High Sens 4 Radiography Chest X-Ray - ED: 1 View, Read by ED Physician, Read by Radiologist, Normal, Heart, Lungs, Mediastinum, Bony Structures, No Acute Disease and Chronic Changes Diagnostic Testing: Clinical Impression(s) from Imaging Studies Chest X-Ray 11/22/23 21:35 IMPRESSION: No radiographic evidence of acute cardiopulmonary disease. Electronically Signed: Amos Hernandez MD at 22:14 EDT , Chest x-ray, portable, single view interpreted both by myself and radiologist shows no acute abnormality. Chronic changes. Rhythm Strip Rhythm Strip: Sinus Rhythm Rate: 70 Ectopy: None EKG Initial EKG: Attestation: I personally reviewed and interpreted this EKG as follows: Interpretation: Sinus Rhythm, No Acute Injury Pattern, Sinus Bradycardia and Sinus Tachycardia Comments: Normal sinus rhythm rate of 70 first-degree AV block KS interval 236. No acute signs of MD, ischemia or dysrhythmia. Prior EKG tracings: available for review Prior: No Prior Discharge Plan Triage Chief Complaint: Syncope ED Provider: Domenic Amador Dx/Rx/DC Orders Clinical Impression: Near syncope Instructions: ED Near-Fainting, Uncertain Cause Prescriptions: No Action atenolol 25 MG tablet 25 mg PO DAILY calcium carbonate 600 MG tablet 600 mg PO DAILY multivitamin [Daily Multiple] 1 EACH tablet 1 ea PO DAILY aspirin 81 MG tablet,chewable 81 mg PO QHS Fish Oil 500 MG capsule,delayed release(DR/EC) 1,200 mg PO DAILY atorvastatin 10 mg tablet 25 mg PO QHS potassium chloride 20 mEq Tablet Extended Release 20 meq PO DAILY triamterene-hydrochlorothiazid 37.5-25 mg capsule 1 cap PO DAILY Patient Comments: TAKE 1 CAPSULE BY MOUTH ONCE DAILY diphenhydramine HCl [Benadryl] 25 mg Capsule 25 mg PO QHS PRN (Reason: Sleep) Primary Care Provider: Rick Dupont Referrals: Rick Dupont MD [Primary Care Provider] - 3-5 Days if not improving Activity Restrictions/Additional Instructions: Plenty of fluids and rest. Follow-up with your doctor as needed. Return if feeling worse. Print Language: Senegalese Disposition Disposition: Home, Self Care
[2023-11-22] MEDS: 0.9% Normal Saline (1000mL) 1,000 ML 999 ML IV ×2 (21:29→23:15)
[2023-11-22 21:33] LABS: Absolute Lymphocyte Count 1.94 X10^3/uL (0.83-4.51); Basophil# 0.04 X10^3/uL; Basophil% 0.3 % (0-1); Eosinophil# 0.13 X10^3/uL; Eosinophils% 1.1 % (0-5); Hematocrit 39.9 % (37-47); Hemoglobin 13.4 g/dL (12.0-15.0); Lymphocyte # 1.94 X10^3/ul (0.83-4.51); Lymphocyte % 16.4 % (19-41); Mean Corp Hgb Conc 33.6 g/dL (32-36); Mean Corpuscular Hgb 30.5 pg (27.0-32.0); Mean Corpuscular Volume 90.9 fL (81-99); Monocyte# 0.73 X10^3/uL; Monocyte% 6.2 % (0-10); NRBC Flagged by Analyzer 0 % (0-5); Neutrophil # 8.97 X10^3/uL (2.7-7.7); Neutrophil % 75.7 % (47-70); Platelet Count 220 K/mm3 (150-450); RBC Distribution Width CV 12.9 % (11.6-14.6); RBC Distribution Width SD 42.4 fl (35.1-43.9); Red Blood Count 4.39 M/mm3 (4.2-5.4); White Blood Count 11.8 K/mm3 (4.4-11.0)
--- NOTE | 2023-11-22 21:35 | RAD_ITS ---
INDICATION: chest pain EXAMINATION/TECHNIQUE: X-RAY - XR Chest 1 View COMPARISON: September 08, 2022. FINDINGS: LINES/DEVICES: None. LUNGS: No consolidation, edema or effusion. No pneumothorax. MEDIASTINUM AND CARDIOVASCULAR STRUCTURES: Cardiac silhouette not enlarged. Aortic atherosclerosis BONES AND SOFT TISSUES: Unremarkable. RAD/Chest 1 View (Portable) IMPRESSION: No radiographic evidence of acute cardiopulmonary disease. Electronically Signed: Amos Hernandez MD at 22:14 EDT ,
[2023-11-22 21:50] LABS: Anion Gap 7 (5-15); BUN 22 mg/dL (7-18); BUN/Creat Ratio 18.5 RATIO (10-20); Calcium,Total 9.1 mg/dL (8.5-10.1); Chloride 102 mmol/L (98-107); Creatinine, Serum 1.19 mg/dL (0.55-1.02); EST Glomerular Filtration Rate 47 mL/min (>60); Est Glom Filt Rate - Afr Amer 57 mL/min (>60); Estimated Creatinine Clearance 40.76 ml/min; Glucose 118 mg/dL (74-106); Potassium 3.9 mmol/L (3.5-5.1); Sodium Level 137 mmol/L (136-145); Troponin-I HS 4 pg/mL (3.0-54.0)
[2023-11-22 22:21] VITALS: BP 163/69; PULSE 75; RESP 16; O2SAT 96
[2023-11-22 23:03] VITALS: BP 156/72; BP 161/77; BP 169/88; PULSE 80; PULSE 84; PULSE 87
[2023-11-23] VITALS: BP 159/77; PULSE 85; RESP 13; O2SAT 98
--- NOTE | 2023-11-23 00:57 | CT_ITS ---
INDICATION: dizziness EXAMINATION: CT BRAIN - CT Head or Brain W/O Contrast Injection TECHNIQUE: Multiple axial images were obtained of the head without intravenous contrast. A radiation dose optimization technique was used for this scan. IV Contrast dosage and agent: None. COMPARISON: None FINDINGS: BRAIN PARENCHYMA: No intra- or extra-axial hemorrhage. No evidence of acute infarct. No intracranial mass or mass effect. Mild periventricular and subcortical white matter hypodense chronic small vessel white matter ischemic change. There is preservation of the hull/white matter interface. Posterior fossa structures are unremarkable. Carotid atherosclerosis. CSF SPACES: Cerebral volume appropriate for age. No hydrocephalus. Basal cisterns are patent. CALVARIUM, SKULL BASE, PARANASAL SINUSES AND MASTOID AIR CELLS: Scattered mild paranasal sinus mucoperiosteal thickening. No acute osseous finding. Mastoid air cells are clear. ORBITS: Both globes, extraocular muscles, optic nerves and retrobulbar fat appear unremarkable. ASPECTS Score for Acute Strokes: 10 CT/Brain/Head without Contrast IMPRESSION: No CT evidence of acute intracranial hemorrhage or injury. Mild senescent changes. Electronically Signed: Amos Hernandez MD at 1:54 EDT Reading Location ID and State: [facility] / [place] Tel , Service support ,
[2023-11-23] MEDS: Meclizine HCl 25 MG Tablet PO (01:37)
[2023-11-23 02:00] VITALS: BP 155/85; PULSE 94; RESP 22; O2SAT 96
[2023-11-23 02:47] VITALS: BP 148/78; PULSE 94; RESP 20; TEMP 36.4; O2SAT 99
== END 2023-11-23 03:14 | disposition home or self-care (01) ==
PROVIDERS: Emergency Provider Emergency Medicine; PCP Family Medicine; Visit Provider Emergency Medicine
DX: R55 Syncope and collapse (principal); I10 Essential (primary) hypertension; E78.00 Pure hypercholesterolemia, unspecified; Z79.899 Other long term (current) drug therapy; Z79.82 Long term (current) use of aspirin
CPT/HCPCS: 70450; 71045; 80048; 84484; 85025; 93005; 96360; 96361; 99285; J7030; A4216

== ENCOUNTER 2024-11-04 09:24 | Emergency (ER) | payer MEDICARE, OTHER, SELFPAY ==
[2024-11-04] VITALS (7 sets, daily range): BP systolic 126–146; BP diastolic 62–79; PULSE 61–89; RESP 16–20; TEMP 36.3–37; O2SAT 97–100; BMI 30.3
--- NOTE | 2024-11-04 09:43 | EKG12_ITS ---
Test Reason : sob Blood Pressure : */* mmHG Vent. Rate : 63 BPM Atrial Rate : 63 BPM P-R Int : 212 ms QRS Dur : 80 ms QT Int : 444 ms P-R-T Axes : 39 -28 35 degrees QTcB Int : 454 ms Sinus rhythm with 1st degree A-V block Otherwise normal ECG Confirmed by HAKAN FRYE, CARTER ([id number]), commissioning editor KASEY CROCKETT ([id number]) on 11/05/2024 11:09:20 AM Referred By: Confirmed By: CARTER MCCLENDON MD
--- NOTE | 2024-11-04 09:45 | EX.ED.DYSGE1 ---
HPI History of Present Illness Chief Complaint: Weakness Detail of Chief Complaint: Weakness and lightheadedness Informant: patient Narrative Narrative: Patient presents to the emergency department with complaint of generalized weakness and feeling lightheaded. Patient states symptoms started this morning when she got up from watching TV and went into the kitchen. Had sudden onset of just generally feeling weak and feeling lightheaded but denies vertiginous symptoms. Denies feeling syncopal. She denies nausea or vomiting. She denies chest pain or shortness of breath. She denies palpitations. She denies falls or head injuries. She denies headache. Patient has been diagnosed with a viral bronchitis as an outpatient about a week and a half ago. She was taking Tessalon Perles which she stopped taken yesterday because they made her tired. She denies fevers. Bronchitis symptoms have improved and patient states her had the same thing. [facility] Medical History Wears glasses Post-menopausal High cholesterol Restless legs Non-smoker Hypertension Home Medications ?Medication ?Instructions ?Recorded ?Last Taken ?Type atenolol 25 mg tablet 25 mg PO DAILY 01/13/15 11/04/24 History calcium carbonate 600 mg PO DAILY 01/13/15 11/04/24 History aspirin 81 mg chewable tablet 81 mg PO QHS 03/28/17 11/03/24 History multivitamin (Daily Multiple 1 ea PO DAILY 03/28/17 11/03/24 History tablet) omega 3-dha 60 mg-epa 90 mg-fish 1,200 mg PO BID 03/28/17 11/04/24 History oil 500 mg capsule, delayed release (Fish Oil) atorvastatin 10 mg tablet 25 mg PO QHS 05/31/22 11/03/24 History diphenhydramine HCl 25 mg capsule 25 mg PO QHS PRN Sleep 09/09/22 11/03/24 History (Benadryl) triamterene 37.5 1 cap PO DAILY 09/09/22 11/04/24 History mg-hydrochlorothiazide 25 mg capsule benzonatate 100 mg capsule 100 mg PO Q8H PRN PRN cough 11/04/24 11/03/24 History potassium chloride 20 mEq 20 meq PO BID 11/04/24 11/04/24 History tablet,extended release(part/cryst) Allergy/AdvReac Type Severity Reaction Status Date / Time codeine Allergy Other Verified 09/08/22 22:15 erythromycin lactobionate Allergy Other Verified 09/08/22 22:15 (From Erythrocin) Surgical History S/P colonoscopy Social History Smoking Status: Never smoker alcohol intake: never substance use type: does not use ROS ROS ED Review of Systems ROS Unobtainable: other Constitutional Constitutional ED: Reports lethargy; Denies chills, fever(s), sweats or weight loss Eyes Eyes: Denies blurry vision, change in vision or diplopia ENT ENT ED: Denies rhinorrhea or sore throat Cardiovascular Cardiovascular: Denies chest pain, orthopnea or racing heartbeat Respiratory/Chest Respiratory/Chest: Reports cough; Denies dyspnea, dyspnea on exertion, orthopnea or sputum Gastrointestinal Gastrointestinal: Denies abdominal pain, diarrhea, nausea or vomiting Genitourinary Genitourinary ED: Denies dysuria, hematuria or urinary frequency Musculoskeletal Musculoskeletal: Denies arthralgias, back pain, myalgias or neck pain Integumentary Denies abscess, Abrasions or rash Neurologic Neurologic: Reports weakness and other Details: Lightheadedness ; Denies headache(s) Psychiatric Psychiatric: Denies anxiety, depression or suicidal thoughts Endocrine Endocrinology: Denies polydipsia, polyphagia or polyuria Hematologic/Lymphatic Hematologic/Lymphatic: Denies easy bleeding, easy bruising or lymphadenopathy Allergic/Immunologic Allergic/Immunologic ED: Denies mouth swelling, tongue swelling or urticaria EXAM Physical Exam Const Vital Signs: 11/04/24 09:24 11/04/24 09:24 11/04/24 10:24 Temperature 98.6 F 98.0 F Temperature Source Oral Oral Pulse Rate 67 62 Pulse Rate [Lying] Pulse Rate [Sitting (for 1 minute prior to obtaining)] Pulse Rate [Standing (for 1 minute prior to obtaining)] Respiratory Rate 20 H 19 H Respiratory Effort Normal Non-Labored Respiratory Pattern Normal Blood Pressure 126/72 H 136/65 H Blood Pressure [Lying] Blood Pressure [Sitting (for 1 minute prior to obtaining)] Blood Pressure [Standing (for 1 minute prior to obtaining)] Blood Pressure Mean 90 88 Blood Pressure Mean [Lying] Blood Pressure Mean [Sitting (for 1 minute prior to obtaining)] Blood Pressure Mean [Standing (for 1 minute prior to obtaining)] Pulse Ox 98 97 Oxygen Delivery Method Room Air Room Air 11/04/24 10:30 11/04/24 11:04 11/04/24 11:05 Temperature 98.0 F Temperature Source Oral Pulse Rate 61 64 Pulse Rate [Lying] 61 Pulse Rate [Sitting (for 1 minute prior to obtaining)] 64 Pulse Rate [Standing (for 1 minute prior to obtaining)] 67 Respiratory Rate 19 H 17 Respiratory Effort Respiratory Pattern Blood Pressure 136/65 H 141/62 H Blood Pressure [Lying] 133/66 H Blood Pressure [Sitting (for 1 minute prior to obtaining)] 146/70 H Blood Pressure [Standing (for 1 minute prior to obtaining)] 141/62 H Blood Pressure Mean 88 88 Blood Pressure Mean [Lying] 88 Blood Pressure Mean [Sitting (for 1 minute prior to obtaining)] 95 Blood Pressure Mean [Standing (for 1 minute prior to obtaining)] 88 Pulse Ox 97 97 Oxygen Delivery Method Room Air Room Air 11/04/24 12:00 Temperature 97.4 F L Temperature Source Temporal Pulse Rate 79 Pulse Rate [Lying] Pulse Rate [Sitting (for 1 minute prior to obtaining)] Pulse Rate [Standing (for 1 minute prior to obtaining)] Respiratory Rate 16 Respiratory Effort Respiratory Pattern Blood Pressure 140/76 H Blood Pressure [Lying] Blood Pressure [Sitting (for 1 minute prior to obtaining)] Blood Pressure [Standing (for 1 minute prior to obtaining)] Blood Pressure Mean 97 Blood Pressure Mean [Lying] Blood Pressure Mean [Sitting (for 1 minute prior to obtaining)] Blood Pressure Mean [Standing (for 1 minute prior to obtaining)] Pulse Ox 99 Oxygen Delivery Method Room Air Positive well nourished and well developed General Appearance ED: well developed and NAD HEENT Reports TM's clear and moist mucous membranes normocephalic and atraumatic; Negative for trauma or tenderness Tympanic Membrane ED: Yes TM's clear Eyes PERRL and EOMs intact bilaterally General Eye ED: Negative for pale conjunctiva or scleral icterus Neck no lymphadenopathy, supple and no JVD General: Negative for tenderness Chest Wall inspection of chest normal and palpation of chest normal Chest: Negative for tenderness Resp normal respiratory effort and clear to auscultation bilaterally Effort and Inspection: Negative for respiratory distress or pain with movement Auscultation: Negative for rhonchi, wheezes or diminished lung sounds Cardio regular rate, regular rhythm, S1 normal heart sound, S2 normal heart sound and no murmurs Peripheral Pulses: pulses 2+ throughout GI normal to inspection, nondistended, normoactive bowel sounds, soft to palpation, non-tender, non-distended and no masses Back/Spine no CVA tenderness and no thoracic nor lumbar tenderness Extremity normal to inspection General Extremety ED: Negative for edema General Extremity: Negative for edema Neuro oriented x3, CN's II-XII intact bilaterally, no sensory deficits noted and gait normal Neuro Narrative: [id number] and [id number] testing within normal limits, negative Romberg. Hallpike maneuver performed there was no nystagmus and no symptoms of dizziness or vertigo. Sensorium / Orientation: awake, alert, oriented to person, oriented to place and oriented to time Motor Exam: strength 5/5 throughout and strength abnormal Psych mental status grossly normal Skin no rashes or lesions noted and no wounds MDM MDM MDM Narrative Medical decision making narrative: Patient presents with generalized weakness and feeling lightheaded. Clinically looks well on arrival. No signs of vertigo on exam. No focal deficits. IV line established. Orthostatic vital signs performed were negative. Patient was given liter normal same fluid bolus. EKG obtained arrival shows sinus rhythm with rate of 63 bpm with a first-degree AV block with no acute ST segment changes. CBC with differential count 8.7 with hemoglobin 14.2 and platelet count of 263. Chemistries unremarkable. Troponin was less than 6. Urinalysis was normal. On repeat examination she feels well just with some generalized weakness. She has been having some upper respiratory symptoms for about a week and a half similar to her . Chest x-ray was obtained and there was no evidence of pneumonia or infiltrate. This point it is unclear what triggered her episode of lightheadedness although I suspect may be vasovagal from standing up quickly. Advised to push fluids. Advised to follow-up with primary care physician within next 3 to 5 days Lab Data Attestation: I reviewed the patient's lab results. Labs: Laboratory Results - last 24 hr 11/04/24 11/04/24 09:15 11:49 WBC 8.7 RBC 4.61 Hgb 14.2 Hct 41.5 MCV 90.0 MCH 30.8 MCHC 34.2 RDW Std Deviation 42.2 RDW Coeff of Kevin 12.9 Plt Count 263 MPV 10.9 Immature Gran % (Auto) 0.300 Neut % (Auto) 65.4 Lymph % (Auto) 27.6 [place] % (Auto) 5.2 Eos % (Auto) 1.4 Baso % (Auto) 0.1 Absolute Neuts (auto) 5.7 Absolute Lymphs (auto) 2.40 Nucleated RBC % 0 Sodium 134 Potassium 3.5 Chloride 96 L Carbon Dioxide 23.6 Anion Gap 14 BUN 13 Creatinine 1.03 Estim Creat Clear Calc 46.83 L Est GFR (MDRD) Non-Af 56 L BUN/Creatinine Ratio 12.6 Glucose 176 H Calcium 9.5 Troponin T High Sens < 6 Urine Color Yellow Urine Clarity Clear Urine pH 8.0 Ur Specific [place] 1.015 Urine Protein 15 H Urine Glucose (UA) Normal Urine Ketones Negative Urine Occult Blood Negative Urine Nitrite Negative Urine Bilirubin Negative Urine Urobilinogen Normal Ur Leukocyte Esterase Negative Urine RBC 0 SEEN Urine WBC 0 SEEN Ur Squamous Epith Cells 0-5 SEEN Urine Bacteria 0 SEEN Urine Mucus 0 SEEN Radiography Diagnostic Testing: Clinical Impression(s) from Imaging Studies Chest X-Ray 11/04/24 10:05 IMPRESSION: Examination limited by AP portable technique and hypoinflation. Increased lung markings at the bases are seen; although this may simply be due to differences in technique, cannot exclude a mild degree of interstitial pulmonary edema. No focal infiltrate is clearly appreciated. No pleural effusion is noted. No pneumothorax is seen. The cardiomediastinal silhouette is stable, without evidence of cardiomegaly. No acute osseous change is noted. Reading Location: [facility] 1 view chest x-ray obtained interpreted by myself as no evidence of infiltrate or pneumothorax or acute disease process. Radiology agreement EKG Initial EKG: Attestation: I personally reviewed and interpreted this EKG as follows: Comments: Sinus rhythm with rate of 63 bpm with first-degree AV block Discharge Plan Triage Chief Complaint: Weakness ED Provider: Elmira Sen Dx/Rx/DC Orders Clinical Impression: Weakness, Dizziness Instructions: ED Dizziness, Uncertain Cause, ED Weakness Uncertain Cause Prescriptions: No Action atenolol 25 MG tablet 25 mg PO DAILY calcium carbonate 600 MG tablet 600 mg PO DAILY multivitamin [Daily Multiple] 1 EACH tablet 1 ea PO DAILY aspirin 81 MG tablet,chewable 81 mg PO QHS Fish Oil 500 MG capsule,delayed release(DR/EC) 1,200 mg PO BID atorvastatin 10 mg tablet 25 mg PO QHS triamterene-hydrochlorothiazid 37.5-25 mg capsule 1 cap PO DAILY Patient Comments: TAKE 1 CAPSULE BY MOUTH ONCE DAILY diphenhydramine HCl [Benadryl] 25 mg Capsule 25 mg PO QHS PRN (Reason: Sleep) potassium chloride 20 mEq tablet,ER particles/crystals 20 meq PO BID benzonatate 100 mg capsule 100 mg PO Q8H PRN PRN (Reason: cough) Patient Comments: pt states stopped taking Primary Care Provider: Rick Dupont Referrals: Rick Dupont MD [Primary Care Provider] - 3-5 Days Print Language: Beninese Disposition Disposition: Home, Self Care
[2024-11-04 09:59] LABS: Absolute Neutrophil Count 5.7 X10^3/uL (2.0-7.7); Basophil# 0.01 X10^3/uL; Basophil% 0.1 % (0-1); Eosinophil# 0.12 X10^3/uL; Eosinophils% 1.4 % (0-5); Hematocrit 41.5 % (37-47); Hemoglobin 14.2 g/dL (12.0-15.0); Lymphocyte % 27.6 % (19-41); Mean Corp Hgb Conc 34.2 g/dL (32-36); Mean Corpuscular Hgb 30.8 pg (27.0-32.0); Mean Platelet Vol. 10.9 fl (6.2-12.0); Monocyte# 0.45 X10^3/uL; Monocyte% 5.2 % (0-10); NRBC Flagged by Analyzer 0 % (0-5); Neutrophil % 65.4 % (47-70); Platelet Count 263 K/mm3 (150-450); RBC Distribution Width CV 12.9 % (11.6-14.6); RBC Distribution Width SD 42.2 fl (35.1-43.9); Red Blood Count 4.61 M/mm3 (4.2-5.4); White Blood Count 8.7 K/mm3 (4.4-11.0)
--- NOTE | 2024-11-04 10:05 | RAD_ITS ---
PROCEDURE: CHEST 1 VIEW (PORTABLE) 11/04/2024 REASON FOR EXAM: COUGH TECHNIQUE: Frontal view of the chest. COMPARISON: Chest x-ray of 11/22/2023. RAD/Chest 1 View (Portable) IMPRESSION: Examination limited by AP portable technique and hypoinflation. Increased lung markings at the bases are seen; although this may simply be due to differences in technique, cannot exclude a mild degree of interstitial pulmonary edema. No focal infiltrate is clearly appreci ated. No pleural effusion is noted. No pneumothorax is seen. The cardiomediastinal silhouette is stable, without evidence of cardiomegaly. No acute osseous change is noted. Reading Location: [place] [id number]
[2024-11-04 10:19] LABS: Anion Gap 14 (5-15); BUN 13 mg/dL (4-19); BUN/Creat Ratio 12.6 RATIO (10-20); Calcium,Total 9.5 mg/dL (7.6-11.0); Carbon Dioxide 23.6 mmol/L (21.0-32.0); Chloride 96 mmol/L (98-108); Creatinine, Serum 1.03 mg/dL (0.70-1.20); EST Glomerular Filtration Rate 56 (>60); Estimated Creatinine Clearance 46.83 ml/min (50-250); Glucose 176 mg/dL (70-99); Potassium 3.5 mmol/L (3.3-5.1); Sodium Level 134 mmol/L (133-145)
[2024-11-04 10:27] LABS: Troponin T High Sensitivity < 6 ng/L (<=14)
[2024-11-04] MEDS: 0.9% Normal Saline (1000mL) 1,000 ML 1000 ML IV (10:41)
[2024-11-04 11:54] LABS: Bacteria 0 SEEN /hpf (None Seen); Mucous, Urine 0 SEEN /hpf (<or=2+); Red Blood Cells-Urine 0 SEEN /hpf (0-5); White Blood Cells 0 SEEN /hpf (0-5)
[2024-11-04 11:58] LABS: Color, Urine Yellow (Yellow); Glucose, Dipstick Normal (Normal); Ketone-Dipstick Negative (Negative); Leukocyte Esterase-Dipstick Negative /ul (Negative); Nitrite-Dipstick Negative (Negative); Occult Blood-Urine Negative /ul (Negative); Protein-Dipstick 15 mg/dl (Negative); Specific Gravity, Urine 1.015 (1.002-1.030); Urine Bilirubin Dipstick Negative (Negative); Urine Clarity Clear (Clear); Urine Urobilinogen Normal (Normal)
[2024-11-04 12:07] LABS: Squamous Epithelial Cells - UA 0-5 SEEN /hpf (5-10)
== END 2024-11-04 12:54 | disposition home or self-care (01) ==
PROVIDERS: Emergency Provider Emergency Medicine; PCP Family Medicine; Visit Provider Emergency Medicine
DX: R53.1 Weakness (principal); R42 Dizziness and giddiness; I10 Essential (primary) hypertension; E78.00 Pure hypercholesterolemia, unspecified; Z79.82 Long term (current) use of aspirin; Z79.899 Other long term (current) drug therapy
CPT/HCPCS: 71045; 80048; 81001; 84484; 85025; 93005; 96360; 99285